=== PATIENT | male | born 1960 | race Asian ===

== ENCOUNTER → 2019-12-07 15:11 | Outpatient (BNVA) | payer OTHER, SELFPAY | PROVIDERS: PCP Internal Medicine; Referring Provider Internal Medicine; Visit Provider Internal Medicine Endocrinology, Diabetes & Metabolism | DX: E11.9 Type 2 diabetes mellitus without complications (principal); Z79.84 Long term (current) use of oral hypoglycemic drugs; E53.8 Deficiency of other specified B group vitamins; E55.9 Vitamin D deficiency, unspecified | CPT/HCPCS: 82947 ==

== ENCOUNTER 2020-01-01 18:13 | Emergency (ER) | payer OTHER, SELFPAY ==
[2020-01-01 18:50] VITALS: BP 137/84; PULSE 78; RESP 16; TEMP 36.7; O2SAT 97; BMI 23.5
[2020-01-01 19:37] LABS: COVID-19 Test Negative (Negative)
--- NOTE | 2020-01-01 20:02 | ED_ITS ---
HPI - General Adult General Chief complaint: General Medical Stated complaint: covid swab Time Seen by Provider: 01/01/20 18:47 Source: patient Mode of arrival: ambulatory Limitations: no limitations History of Present Illness HPI narrative: Here for COVID test offers no complaints needs COVID test for travel. Related Data Home Medications Medication Instructions Recorded Confirmed pantoprazole 40 mg tablet,delayed 40 mg PO DAILY 12/07/19 release Previous Rx's Medication Instructions Recorded flash glucose sensor #2 ea 12/07/19 metformin 1,000 mg tablet 1,000 mg PO BID 30 Days #60 tab 12/07/19 repaglinide 0.5 mg tablet 0.5 mg PO BID 30 Days #60 tab 12/07/19 sitagliptin 100 mg tablet 100 mg PO DAILY 30 Days #30 tab 12/07/19 famciclovir 500 mg tablet 500 mg PO Q8H 7 Days #21 tab 12/31/19 triamcinolone acetonide 0.1 % 1 applic TOPICAL DAILY 10 Days #80 12/31/19 topical cream g Allergies Allergy/AdvReac Type Severity Reaction Status Date / Time No Known Allergies Allergy Verified 01/01/20 18:52 Review of Systems Review of Systems: Constitutional: No Weight loss, No Fever, No Chills, No Night Sweats, No Fatigue, No Malaise ENT/Mouth: No Hearing loss, No Ear Pain, No Nasal Congestion, No Sinus Pain, No Hoarseness, No sore throat, No Rhinorrhea, No Swallowing Difficulty Eyes: No Eye Pain, No Swelling, No Redness, No Foreign Body, No Discharge, No Vision Changes Cardiovascular: No Chest Pain, No SOB, No Dyspnea on Exertion, No Orthopnea, No Edema, No Palpitations Respiratory: No Cough, No Sputum, No Wheezing, No Smoke Exposure, No Dyspnea Musculoskeletal: No joint pain, No Myalgias, No Joint Swelling Skin: No Skin Lesions, No rash Neuro: No Weakness, No Numbness, No Paresthesias, No Loss of Consciousness, No Dizziness, No Headache Psych:No Social Issues Heme/Lymph: No Bruising, No Bleeding,No Lymphadenopathy Endocrine: No Polyuria, No Polydipsia, No Temperature Intolerance Yes all other systems are reviewed and are negative [facility] Past Medical History Medical History (Updated 01/01/20 @ 20:21 by Terry Leonardo NP) Cobalamin deficiency Diabetes type 2, uncontrolled Vitamin D deficiency Surgical History (Updated 12/07/19 @ 15:26 by WILTON Sanabria) History of back surgery Hx of hernia repair Hx of right inguinal hernia repair Family History Family History (Updated 12/07/19 @ 15:28 by WILTON Sanabria) Father No problems noted. Mother Diabetes mellitus Social History Social History (Updated 12/07/19 @ 15:28 by WILTON Sanabria) Smoking Status: Never smoker Advance Directives: No Advance Directives Information Provided: Yes Physical Exam Vital Signs: Vital Signs: Last Vital Signs Temp 98.1 F 01/01/20 18:50 Pulse 78 01/01/20 18:50 Resp 16 01/01/20 18:50 BP 137/84 01/01/20 18:50 Pulse Ox 97 01/01/20 18:50 Body Mass Index 23.5 Const: General: cooperative and healthy appearing; No acute distress or intoxicated appearing Nutritional Appearance: average body habitus Orientation/consciousness: patient oriented x3 HENMT: Head: Yes normal to inspection Ears: hearing grossly normal bilaterally Eyes: General: appearance normal, both eyes and all related structures Visual Donaldson: normal visual donaldson by confrontation Neck: Neck: Yes normal visual inspection, No positive Brudzinski's sign, No positive Kernig's sign and No tender Thyroid: Thyroid normal Chest: Chest palpation & inspection: normal inspection of the chest Skin: General skin exam: no rashes or lesions noted Neuro: General: patient oriented x3 Extrem: General: Yes normal to inspection Course Course Course Narrative: COVID test for travel Medical Decision Making Lab Data Labs: Lab Results 01/01/20 Range/Units 18:47 COVID-19 ([facility]) Negative (Negative) COVID-19 Clin Com See Note Discharge Plan Discharge Clinical Impression: Normal exam Patient Disposition: Home, Self-Care Additional Instructions: Your COVID test was negative today 01/01/2020 at 20:00 Prescriptions: No Action famciclovir 500 mg tablet 500 mg PO Q8H 7 Days Qty: 21 RF: 0 triamcinolone acetonide 0.1 % cream 1 applic topical DAILY 10 Days Qty: 80 RF: 0 pantoprazole 40 mg tablet,delayed release (DR/EC) 40 mg PO DAILY RF: 0 (DME) flash glucose sensor Kit See Rx Instructions ea topical .MEDSUPPLY Qty: 2 RF: 8 metformin 1,000 mg tablet 1,000 mg PO BID 30 Days Qty: 60 RF: 6 sitagliptin 100 mg tablet 100 mg PO DAILY 30 Days Qty: 30 RF: 6 repaglinide 0.5 mg tablet 0.5 mg PO BID 30 Days Qty: 60 RF: 6
== END 2020-01-01 20:42 | disposition home or self-care (01) ==
PROVIDERS: Nurse Practitioner Primary Care; Emergency Provider Internal Medicine; PCP Internal Medicine
DX: Z20.828 Contact with and (suspected) exposure to other viral communicable diseases (principal); Z79.899 Other long term (current) drug therapy
CPT/HCPCS: 87635; 99283; 99284

== ENCOUNTER → 2020-03-07 14:33 | Outpatient (BNVA) | payer OTHER, SELFPAY | PROVIDERS: PCP Internal Medicine; Visit Provider Internal Medicine Endocrinology, Diabetes & Metabolism | DX: E11.9 Type 2 diabetes mellitus without complications (principal); E53.8 Deficiency of other specified B group vitamins; E55.9 Vitamin D deficiency, unspecified | CPT/HCPCS: 82947 ==

== ENCOUNTER 2020-05-11 07:02 | Outpatient (REF) | payer OTHER, SELFPAY ==
[2020-05-11 11:38] LABS: Hematocrit 44.2 % (42-52); Hemoglobin 13.7 g/dl (14.0-18.0); Mean Corpuscular Hemoglobin 25.6 pg (27.0-33.0); Mean Corpuscular Volume 82.5 fL (80-98); Mean Platelet Volume 10.9 fL (9.4-12.4); Platelet Count 180 X10*3/uL (160-400); Red Blood Count 5.36 X10*6/uL (4.60-5.80); Red Cell Distribution Width 12.9 % (11.0-16.0); White Blood Count 3.7 X10*3/uL (4.8-10.8)
[2020-05-11 11:52] LABS: Creatinine Urine 210.64 mg/dL; Microalbum/Creatinine Ratio Ur 2.8 ug/mg cr
[2020-05-11 12:09] LABS: Alanine Aminotransferase 22 U/L (0-40); Albumin Level 4.3 g/dL (3.5-5.0); Alkaline Phosphatase 52 U/L (39-117); Anion Gap 12 (12-20); Aspartate Amino Transferase 16 U/L (5-37); Bilirubin Total 0.3 mg/dL (0.0-1.0); Blood Urea Nitrogen 20 mg/dL (9-16); Calcium 9.1 mg/dL (8.4-10.2); Carbon Dioxide 31 mmol/L (22-29); Chloride 102 mmol/L (96-108); Cholesterol 114 mg/dL; Estimated Glomerular Filt Rate > 60; Glucose Fasting 181 mg/dL (60-99); HDL Cholesterol 59 mg/dL; LDL Cholesterol Calculated 47 mg/dl; Potassium 3.9 mmol/L (3.3-5.1); Sodium 141 mmol/L (135-145); Triglycerides 40 mg/dL
[2020-05-11 12:14] LABS: Vitamin D 25-OH Total 35.7 ng/mL (>30)
[2020-05-11 13:39] LABS: Vitamin B12 310 pg/mL (200-900)
[2020-05-12 07:02] LABS: LDL Cholesterol Direct 44 mg/dL (<100)
== END 2020-05-11 07:03 | disposition home or self-care (01) ==
LOC: HO.HMGCLDS 07:02
PROVIDERS: PCP Internal Medicine; Visit Provider Internal Medicine Endocrinology, Diabetes & Metabolism
DX: E11.65 Type 2 diabetes mellitus with hyperglycemia (principal)
CPT/HCPCS: 36415; 80053; 80061; 82043; 82306; 82607; 83721; 85027

== ENCOUNTER → 2020-05-17 10:35 | Outpatient (BNVA) | payer OTHER, SELFPAY | PROVIDERS: PCP Internal Medicine; Visit Provider Internal Medicine Endocrinology, Diabetes & Metabolism | DX: E11.9 Type 2 diabetes mellitus without complications (principal); E53.8 Deficiency of other specified B group vitamins; E55.9 Vitamin D deficiency, unspecified | CPT/HCPCS: 82947 ==

== ENCOUNTER 2020-06-15 13:59 | Outpatient (REF) | payer OTHER, SELFPAY ==
[2020-06-15 16:49] LABS: Estimated Average Glucose 200 mg/dL; Hemoglobin A1c % 8.6 %
== END 2020-06-15 14:00 | disposition home or self-care (01) ==
LOC: HO.HMGCLDS 13:59
PROVIDERS: PCP Internal Medicine; Visit Provider Internal Medicine Endocrinology, Diabetes & Metabolism
DX: E11.65 Type 2 diabetes mellitus with hyperglycemia (principal)
CPT/HCPCS: 36415; 83036

== ENCOUNTER 2020-09-14 06:32 | Outpatient (REF) | payer OTHER, SELFPAY ==
[2020-09-14 07:49] LABS: Estimated Average Glucose 194 mg/dL; Hemoglobin A1c % 8.4 %
[2020-09-14 07:58] LABS: Alanine Aminotransferase 16 U/L (0-40); Albumin Level 4.3 g/dL (3.5-5.0); Alkaline Phosphatase 52 U/L (39-117); Anion Gap 10 (12-20); Aspartate Amino Transferase 15 U/L (5-37); Bilirubin Total 0.3 mg/dL (0.0-1.0); Blood Urea Nitrogen 18 mg/dL (9-16); Calcium 9.6 mg/dL (8.4-10.2); Carbon Dioxide 29 mmol/L (22-29); Chloride 104 mmol/L (96-108); Cholesterol 124 mg/dL; Estimated Glomerular Filt Rate > 60; Glucose Random 179 mg/dL (60-115); HDL Cholesterol 69 mg/dL; LDL Cholesterol Calculated 50 mg/dl; Potassium 4.4 mmol/L (3.3-5.1); Sodium 139 mmol/L (135-145); Triglycerides 25 mg/dL; Vitamin D 25-OH Total 39.6 ng/mL (>30)
[2020-09-14 08:08] LABS: Prostate Specific Antigen 0.62 ng/mL (<0.05-4.0)
[2020-09-14 09:28] LABS: Creatinine Urine 119.34 mg/dL; Microalbumin Urine < 5.0 mg/L
[2020-09-14 10:07] LABS: Vitamin B12 290 pg/mL (200-900)
== END 2020-09-14 06:33 | disposition home or self-care (01) ==
LOC: HO.LAB 06:32
PROVIDERS: PCP Internal Medicine; Visit Provider Internal Medicine
DX: Z12.5 Encounter for screening for malignant neoplasm of prostate (principal); E11.9 Type 2 diabetes mellitus without complications
CPT/HCPCS: 36415; 80053; 80061; 82043; 82306; 82607; 83036; 84153; 84443

== ENCOUNTER 2021-02-06 08:29 | Outpatient (REF) | payer OTHER, SELFPAY ==
[2021-02-06 08:51] LABS: MANUAL DIFF FLAG NO
[2021-02-06 09:21] LABS: Basophils Percent Auto 0.6 % (0-2); Eosinophils Absolute Auto 0.1 X10*3/uL (0.0-0.4); Eosinophils Percent Auto 0.9 % (0-4); Hematocrit 47.1 % (42.0-52.0); Hemoglobin 14.9 g/dl (14.0-18.0); Imm Gran Abs Auto 0.01 X10*3/uL (0.00-0.03); Imm Gran Pct Auto 0.2 % (0.0-0.4); Lymphocytes Absolute Auto 2.7 X10*3/uL (1.2-4.9); Lymphocytes Percent Auto 50.2 % (20-40); Mean Corpuscular HGB Conc 31.6 g/dl (31.0-36.0); Mean Corpuscular Hemoglobin 25.9 pg (27.0-33.0); Mean Corpuscular Volume 81.8 fL (80.0-98.0); Mean Platelet Volume 10.5 fL (9.4-12.4); Monocytes Absolute Auto 0.3 X10*3/uL (0.1-1.2); Monocytes Percent Auto 6.1 % (2-11); Neutrophils Absolute Auto 2.2 x10*3/uL (2.0-8.3); Platelet Count 193 X10*3/uL (160-400); Red Blood Count 5.76 X10*6/uL (4.60-5.80); Red Cell Distribution Width 12.8 % (11.0-16.0); White Blood Count 5.3 X10*3/uL (4.8-10.8)
[2021-02-06 09:30] LABS: Estimated Average Glucose 186 mg/dL; Hemoglobin A1c % 8.1 %
[2021-02-06 09:55] LABS: Alanine Aminotransferase 22 U/L (0-40); Albumin Level 4.4 g/dL (3.5-5.0); Alkaline Phosphatase 54 U/L (39-117); Anion Gap 11 (12-20); Aspartate Amino Transferase 16 U/L (5-37); Bilirubin Total 0.4 mg/dL (0.0-1.0); Blood Urea Nitrogen 19 mg/dL (9-16); Calcium 9.6 mg/dL (8.4-10.2); Carbon Dioxide 29 mmol/L (22-29); Chloride 102 mmol/L (96-108); Cholesterol 84 mg/dL; Estimated Glomerular Filt Rate > 60; Glucose Random 196 mg/dL (60-115); HDL Cholesterol 46 mg/dL; LDL Cholesterol Calculated 33 mg/dl; Potassium 4.2 mmol/L (3.3-5.1); Sodium 138 mmol/L (135-145); Total Protein 7.1 g/dL (6.5-8.0); Triglycerides 29 mg/dL
[2021-02-06 09:59] LABS: Creatinine Urine 104.27 mg/dL; Microalbum/Creatinine Ratio Ur 7.6 ug/mg cr
== END 2021-02-06 08:30 | disposition home or self-care (01) ==
LOC: HO.LAB 08:29
PROVIDERS: PCP Internal Medicine; Visit Provider Internal Medicine
DX: E11.9 Type 2 diabetes mellitus without complications (principal)
CPT/HCPCS: 36415; 80053; 80061; 82043; 83036; 85025

== ENCOUNTER 2021-04-26 07:10 | Outpatient (REF) | payer OTHER, SELFPAY ==
[2021-04-26 07:38] LABS: MANUAL DIFF FLAG NO
[2021-04-26 07:54] LABS: Basophils Percent Auto 0.5 % (0-2); Eosinophils Percent Auto 0.7 % (0-4); Hematocrit 44.8 % (42.0-52.0); Hemoglobin 13.9 g/dl (14.0-18.0); Imm Gran Abs Auto 0.01 X10*3/uL (0.00-0.03); Imm Gran Pct Auto 0.2 % (0.0-0.4); Lymphocytes Absolute Auto 1.7 X10*3/uL (1.2-4.9); Mean Corpuscular Hemoglobin 25.4 pg (27.0-33.0); Mean Corpuscular Volume 81.9 fL (80.0-98.0); Mean Platelet Volume 10.8 fL (9.4-12.4); Monocytes Absolute Auto 0.3 X10*3/uL (0.1-1.2); Monocytes Percent Auto 7.1 % (2-11); Neutrophils Absolute Auto 2.2 x10*3/uL (2.0-8.3); Neutrophils Percent Auto 51.5 % (45-73); Platelet Count 158 X10*3/uL (160-400); Red Blood Count 5.47 X10*6/uL (4.60-5.80); Red Cell Distribution Width 13.3 % (11.0-16.0); White Blood Count 4.3 X10*3/uL (4.8-10.8)
[2021-04-26 08:18] LABS: Estimated Average Glucose 180 mg/dL; Hemoglobin A1c % 7.9 %
[2021-04-26 08:47] LABS: Vitamin D 25-OH Total 40.2 ng/mL (>30)
[2021-04-26 08:54] LABS: Alanine Aminotransferase 23 U/L (0-40); Albumin Level 4.4 g/dL (3.5-5.0); Alkaline Phosphatase 53 U/L (39-117); Anion Gap 11 (12-20); Aspartate Amino Transferase 17 U/L (5-37); Bilirubin Total 0.4 mg/dL (0.0-1.0); Blood Urea Nitrogen 19 mg/dL (9-16); Calcium 9.9 mg/dL (8.4-10.2); Carbon Dioxide 31 mmol/L (22-29); Chloride 103 mmol/L (96-108); Cholesterol 100 mg/dL; Estimated Glomerular Filt Rate > 60; Glucose Random 169 mg/dL (60-115); HDL Cholesterol 63 mg/dL; LDL Cholesterol Calculated 33 mg/dl; Potassium 4.3 mmol/L (3.3-5.1); Sodium 141 mmol/L (135-145); Total Protein 7.1 g/dL (6.5-8.0); Triglycerides 23 mg/dL
[2021-04-26 09:18] LABS: Creatinine Urine 132.89 mg/dL; Microalbumin Urine < 5.0 mg/L
== END 2021-04-26 07:11 | disposition home or self-care (01) ==
LOC: HO.LAB 07:10
PROVIDERS: PCP Internal Medicine; Visit Provider Internal Medicine
DX: E11.649 Type 2 diabetes mellitus with hypoglycemia without coma (principal); Z82.3 Family history of stroke
CPT/HCPCS: 36415; 80053; 80061; 82043; 82306; 83036; 85025

== ENCOUNTER 2021-07-10 06:01 | Outpatient (REF) | payer OTHER, SELFPAY ==
[2021-07-10 06:20] LABS: MANUAL DIFF FLAG NO
[2021-07-10 07:35] LABS: Basophils Percent Auto 0.5 % (0-2); Eosinophils Percent Auto 0.9 % (0-4); Hematocrit 42.6 % (42.0-52.0); Hemoglobin 13.5 g/dl (14.0-18.0); Imm Gran Abs Auto 0.01 X10*3/uL (0.00-0.03); Imm Gran Pct Auto 0.2 % (0.0-0.4); Lymphocytes Absolute Auto 1.8 X10*3/uL (1.2-4.9); Lymphocytes Percent Auto 40.3 % (20-40); Mean Corpuscular HGB Conc 31.7 g/dl (31.0-36.0); Mean Corpuscular Hemoglobin 25.7 pg (27.0-33.0); Mean Corpuscular Volume 81.1 fL (80.0-98.0); Mean Platelet Volume 11.4 fL (9.4-12.4); Monocytes Absolute Auto 0.3 X10*3/uL (0.1-1.2); Monocytes Percent Auto 7.8 % (2-11); Neutrophils Absolute Auto 2.2 x10*3/uL (2.0-8.3); Neutrophils Percent Auto 50.3 % (45-73); Platelet Count 162 X10*3/uL (160-400); Red Blood Count 5.25 X10*6/uL (4.60-5.80); Red Cell Distribution Width 13.4 % (11.0-16.0); White Blood Count 4.3 X10*3/uL (4.8-10.8)
[2021-07-10 08:05] LABS: Alanine Aminotransferase 18 U/L (0-40); Albumin Level 4.2 g/dL (3.5-5.0); Alkaline Phosphatase 48 U/L (39-117); Anion Gap 11 (12-20); Aspartate Amino Transferase 16 U/L (5-37); Bilirubin Total 0.5 mg/dL (0.0-1.0); Blood Urea Nitrogen 21 mg/dL (9-16); Calcium 9.6 mg/dL (8.4-10.2); Carbon Dioxide 28 mmol/L (22-29); Chloride 104 mmol/L (96-108); Estimated Glomerular Filt Rate > 60; Glucose Random 131 mg/dL (60-115); Sodium 139 mmol/L (135-145); Total Protein 6.8 g/dL (6.5-8.0)
[2021-07-10 08:06] LABS: Estimated Average Glucose 174 mg/dL; Hemoglobin A1c % 7.7 %
[2021-07-10 08:18] LABS: Thyroid Stimulating Hormone 1.41 uIU/mL (0.32-4.0)
[2021-07-10 08:51] LABS: Creatinine Urine 88.82 mg/dL; Microalbumin Urine < 5.0 mg/L
== END 2021-07-10 06:02 | disposition home or self-care (01) ==
LOC: HO.LAB 06:01
PROVIDERS: PCP Internal Medicine; Visit Provider Internal Medicine
DX: E11.9 Type 2 diabetes mellitus without complications (principal)
CPT/HCPCS: 36415; 80053; 82043; 83036; 84443; 85025

== ENCOUNTER 2021-12-05 07:38 | Outpatient (REF) | payer OTHER, SELFPAY ==
[2021-12-05 08:00] LABS: MANUAL DIFF FLAG NO
[2021-12-05 09:09] LABS: Estimated Average Glucose 180 mg/dL; Hemoglobin A1c % 7.9 %
[2021-12-05 09:10] LABS: Basophils Percent Auto 0.5 % (0-2); Eosinophils Absolute Auto 0.1 X10*3/uL (0.0-0.4); Eosinophils Percent Auto 1.3 % (0-4); Hemoglobin 14.3 g/dl (14.0-18.0); Lymphocytes Absolute Auto 1.6 X10*3/uL (1.2-4.9); Lymphocytes Percent Auto 40.1 % (20-40); Mean Corpuscular HGB Conc 31.8 g/dl (31.0-36.0); Mean Corpuscular Hemoglobin 25.7 pg (27.0-33.0); Mean Corpuscular Volume 80.8 fL (80.0-98.0); Mean Platelet Volume 10.5 fL (9.4-12.4); Monocytes Absolute Auto 0.3 X10*3/uL (0.1-1.2); Monocytes Percent Auto 7.7 % (2-11); Neutrophils Percent Auto 50.4 % (45-73); Platelet Count 168 X10*3/uL (160-400); Red Blood Count 5.57 X10*6/uL (4.60-5.80); Red Cell Distribution Width 13.2 % (11.0-16.0); White Blood Count 3.9 X10*3/uL (4.8-10.8)
[2021-12-05 10:42] LABS: Creatinine Urine 124.37 mg/dL; Microalbumin Urine < 5.0 mg/L
[2021-12-05 10:49] LABS: Thyroid Stimulating Hormone 1.61 uIU/mL (0.32-4.0)
== END 2021-12-05 07:39 | disposition home or self-care (01) ==
LOC: HO.LAB 07:38
PROVIDERS: PCP Internal Medicine; Visit Provider Internal Medicine
DX: E11.9 Type 2 diabetes mellitus without complications (principal)
CPT/HCPCS: 36415; 82043; 83036; 84443; 85025

== ENCOUNTER → 2024-03-25 15:21 | Outpatient (BNVA) | payer OTHER, SELFPAY | PROVIDERS: PCP Internal Medicine; Visit Provider Student in an Organized Health Care Education/Training Program | DX: E11.65 Type 2 diabetes mellitus with hyperglycemia (principal); E11.40 Type 2 diabetes mellitus with diabetic neuropathy, unspecified; F40.298 Other specified phobia; E78.2 Mixed hyperlipidemia; Z79.84 Long term (current) use of oral hypoglycemic drugs; Z79.899 Other long term (current) drug therapy | CPT/HCPCS: 82947; 83036 ==

== ENCOUNTER 2024-03-25 15:22 | Outpatient (AMB) | payer OTHER, SELFPAY ==
[2024-03-25 15:24] VITALS: BP 96/50; PULSE 64; O2SAT 96; BMI 21.9
--- NOTE | 2024-03-25 15:24 | MHC.OFFVIS ---
Vital Signs 03/25/24 15:24 Height 5 ft 7 in Weight 139 lb 12.369 oz BMI 21.9 BP 96/50 L Blood Pressure Location Rt brachial Position Sitting Pulse 64 Pulse Source Pulse Oximeter Pulse Oximetry (%) 96 Oxygen Delivery Method Room Air Intake Visit Reasons: Type 2 DM-confirmed Intake Note: Patient present today for Type 2 Diabetes Mellitus Last Diabetic eye exam: 11/2023 Last Podiatry Visit: Doesn't have one Random Glucose: 144 mg/dl HgA1C: 9.0% Winch Runner Required: No Accompanied by: Self / Same As Patient Allergies No Known Allergies Allergy (Verified 03/25/24 15:30) Medication List - Last Reconciled 03/25/24 by Elena Leonardo MD aspirin 81 mg PO DAILY blood-glucose sensor (FreeStyle Yulia 3 Plus Sensor device) As directed every 15 days E11.65 Type 2 DM with hyperglycemia 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 Type 2 diabetes mellitus diagnosed in 1999. Was seen at our clinic last in 2020, then following wiht PCP A1c 03/25/2024 POC: 9% Over the past year his diabetes mellitus control has worsened and A1c was 8.5% in summer of 2023. Prior therapy: Januvia stopped mid Feb 2024 Sitagliptin Used to be on insulin lantus some 3 years ago ,was stopped with improved control in 2020ish, used to be on it 1.5 hours Current regimen: Metformin 1000 mg BID Jardiance 12.5 mg daily reduce from 25 mg daily mid Feb 2024 Ozempic 0.25 mg weekly started mid Feb 2024 Denies any symptoms of hyperglycemia including polyphagia, polyuria, polydipsia. Denies any hypoglycemic symptoms. vitamin B 12 5000 mcg once a week CGM data downloaded March 12 to 03/25/2024. Time CGM active 40% G mi in/A Glucose variability 23.4% I average glucose 169 mg/dL Within target range 73% 0% kilos Very high 3% High range 24% Vaccines: flu shot [id number] done Complications Eye exam: Last eye exam was November 2023, no retinopathy Neuropathy: reports numbness, tingling in feet Kidney disease: Gfr 90 Pérez Macrovascular complications: No history of macrovascular complications. Statin:rosuvastatin 5 mg daily ONIEL/ARB: none Exercise: walks not much recently Diet control: want s to see statistical programmer He has never had any hospitalizations for hyperglycemia/hypoglycemia. Physical exam General: sitting comfortably in no acute distress HEENT: normocephalic/atraumatic, Neck: supple Cardiac: normal heart sounds Pulm: normal breath sounds B/L, no added breath sounds Abd: not distended, no tenderness Extremities: no edema, no signs of myxedema Neuro: AAO x3, Speech: normal, no facial droop, moving all 4 extremities Skin: Some hyperpigmentation noted on his calves, ecchymosis also noted Foot exam: intact sensation to monofilament, intact pulses, intact vibration Laboratory Tests 04/26/21 12/05/21 03/25/24 07:36 07:58 15:34 Glucose (Clinic) 144 H Hemoglobin A1c % 7.9 Triglycerides 23 Cholesterol 100 LDL Cholesterol, Calc 33 HDL Cholesterol 63 D TSH 1.61 Urine Creatinine 124.37 Urine Microalbumin < 5.0 [facility] Medical History (Updated 03/25/24 @ 16:30 by Elena Leonardo MD) HLD (hyperlipidemia) Needle phobia Vitamin D deficiency Cobalamin deficiency Diabetes type 2, uncontrolled Surgical History Hx of hernia repair Hx of right inguinal hernia repair History of back surgery Family History Father No problems noted. Mother Diabetes mellitus Social History Alcohol intake: never Physical Exam Vital Signs: Last Vital Signs Pulse 64 03/25/24 15:24 BP 96/50 L 03/25/24 15:24 Pulse Ox 96 03/25/24 15:24 Oxygen Delivery Method Room Air 03/25/24 15:24 BMI result Body Mass Index 21.9 Office Procedures Glucose Monitoring Details Details: see [facility] [address] - Glucose monitoring, continuous-physician I&R Procedure code (CPT) selection complete Results AMB Hemoglobin A1c AMB Hemoglobin A1c 9.0 % Last Edit by WILTON Stover on 03/25/24 15:44 Results Reviewed Results Reviewed: Laboratory Last Values Glucose (Clinic) 144 mg/dL (60-115) H 03/25/24 15:34 Assessment & Plan Assessment & Plan (1) Diabetes type 2, uncontrolled: Code(s): E11.65 - Type 2 diabetes mellitus with hyperglycemia Category: Medical Qualifiers: Glycemic state: with hyperglycemia Qualified Code(s): E11.65 - Type 2 diabetes mellitus with hyperglycemia Plan: 63-year-old male with history of type 2 diabetes mellitus with complications of neuropathy, who was diagnosed in 1999, with no long-term insulin use, whose A1c is at 9%. He has freestyle Yulia 2, , and he does not scan very regularly, he has needle phobia so he does not check his blood sugars otherwise, we will prescribe freestyle Yulia 3+. In February his primary care physician made a few changes to his regimen, he was started on Ozempic and Januvia was stopped. He has been tolerating Ozempic 0.25 mg weekly fine. His BMI is 21 kg per m2 so he is not interested in losing more weight, however he is still having postprandial highest so I would like to increase his Ozempic to 0.5 mg weekly. His Jardiance is at 12.5 mg daily, this was reduced in February because he had a syncopal/presyncopal episode and there is a concern this might be due to hypotension/low volume. His blood pressure at today's visit was also on the lower side I have asked him to monitor his blood pressures at home and if his blood pressures remain lower if he is experiencing lightheadedness or dizziness, unfortunately we will have to take him off Jardiance. However for now we will keep him on that dosage. We also spent a large part of the visit today, focusing on diabetes complications and complications of hyperglycemia. Discussed importance of controlling blood sugars to avoid microvascular and macrovascular complications. Plan: -increase Ozempic to 0.5 mg weekly -continue Jardiance 12.5 mg daily -continue 1000 mg metformin b.i.d. -continue vitamin B12 5000 mcg once a week -foot exam done today unremarkable -up-to-date with Ophthalmology, no history of retinopathy -I did not see a urine microalbumin in the chart, he says he had that done with his PCP recently, he will bring me results next visit -follow up in 12 weeks -referral to certified diabetes educator placed for new CGM education -referral to statistical programmer placed -continue monitoring blood pressures at home (2) Needle phobia: Code(s): F40.298 - Other specified phobia Category: Medical Plan: Patient has needle phobia, has a uncontrolled hyperglycemia, has freestyle Yulia 2, we will prescribe freestyle Yulia 3+ (3) HLD (hyperlipidemia): Code(s): E78.5 - Hyperlipidemia, unspecified Category: Medical Qualifiers: Hyperlipidemia type: mixed hyperlipidemia Qualified Code(s): E78.2 - Mixed hyperlipidemia Plan: No recent lipid panel in the chart, patient says he had this done recently. Continue rosuvastatin 5 mg daily Plan I spent 60 minutes in reviewing the record, seeing the patient and documenting in the medical record. Orders: Orders AMB Hemoglobin A1c Today E11.65 - Type 2 diabetes mellitus with hyperglycemia, Z13.9 - Encounter for screening, unspecified AMB Glucose Monitoring Today E11.65 - Type 2 diabetes mellitus with hyperglycemia Referrals Head Machinist Nutrition Referral E11.65 - Type 2 diabetes mellitus with hyperglycemia Diabetes Education Referral E11.65 - Type 2 diabetes mellitus with hyperglycemia Medications: New blood-glucose sensor (FreeStyle Yulia 3 Plus Sensor device) As directed every 15 days E11.65 Type 2 DM with hyperglycemia F40.231 Needle phobia 1 ea 0RF semaglutide (Ozempic) 0.5 mg (0.736 mL) subcut QWEEK 3 mL 6RF Patient Instructions: Increase Ozempic to 0.5 mg weekly Continue metformin 1000 twice a day Continue jardiance 12.5 mg daily Coding Level of Care Code New Pt Level 5 (45213) Diagnoses Uncontrolled type 2 diabetes mellitus with hyperglycemia E11.65 Glycemic state: with hyperglycemia Needle phobia F40.298 Mixed hyperlipidemia E78.2 Hyperlipidemia type: mixed hyperlipidemia CPT Codes Details - CPT: 98598 - Glucose monitoring, continuous-physician I&R ([id number]) Time Spent (min) 60
--- OUTSIDE RECORDS SUMMARY | 2024-03-25 15:26 | XMS_ITS ---
Author Organization [facility] Address [address] [place] [address] Care Team Providers Care Technical Publications Writer Name Role Phone ANTONY MORTENSEN Primary Care Provider Antony Mortensen Unavailable [phone] Medications Medication SIG (Take, Route, Fr equency, Duration) Notes Start Date End Date Status Azithromycin 500 MG 1 Orally Once a day for 14 days Active Tretinoin 0.025 % 1 application in the evening to face Externally Once a day for 30 days Active Encounters Encounter Location Date Provider Diagnosis [facility] [address] [id number] 12/24/2022 ANTONY MORTENSEN Plan Of Treatment Medication Medication Name Sig Start Date Stop Date Notes Azithromycin 500 MG 1 Orally Once a day for 14 days Tretinoin 0.025 % 1 application in the evening to face Externally Once a day for 30 days Progress Notes * Lupe RUBY SDOB: [birth year] (62 yo M)Acc No.[id number]:12/24/2022 Patient:?Monet Ruby :1960???Age:62 Y???Sex:Male Address:[address], [place], [address] * Refills? Refill Azithromycin Tablet, 500 MG, Orally, 14, 1, Once a day, 14 days, Refills=0 Start Tretinoin Cream, 0.025 %, Externally, 45 Gram, 1 application in the evening to face, Once a day, 30 days, Refills=1 * true * Date:? Generated for Crystal toledo/Lorenzo/eTparkersmitting on:?03/25/2024 03:25 PM EST
--- OUTSIDE RECORDS SUMMARY | 2024-03-25 15:26 | XMS_ITS | Clinical Summary ---
Author Organization [facility] Address [address] [place] [address] Care Team Providers Care Paper Rewinder Name Role Phone Unknown, Primary Care Provider Unavailabl e Social History Tobacco Use Types Packs/Day Years Used Date Smoking Tobacco: Never Assessed Sex and Gender Information Value Date Recorded Sex Assigned at Not on file Gender Identity Not on file Sexual Orientation Not on file Job Start Date Occupation Industry Not on file Not on file Not on file Plan of Treatment Health Maintenance Due Date Last Done Comments Hepatitis C Screening 1960 COVID-19 Vaccine (#1) 04/24/1961 Depression Screening 1972 Preventative Health Evaluation 1978 DTap / Tdap / Td (1 - Tdap) 10/26/1979 Colon Cancer Screening (Colonoscopy) 2005 Shingrix-Zoster Vaccine (1 of 2) 2010 Influenza Vaccine (#1) 2023 RSV Adult > 60+ Yrs or Pregn ant (1 - 1-dose 75+ series) 10/26/2035 Hepatitis B Vaccines Aged Out No long er eligible based on patient's age to complete this topic Pneumococcal Vaccine Aged Out No long er eligible based on patient's age to complete this topic RSV Ped < 20 months Aged Out No longe r eligible based on patient's age to complete this topic Care Teams Paper Rewinder Relationship Specialty Start Date End Date Unknown, PCP - General 10/26/20
--- OUTSIDE RECORDS SUMMARY | 2024-03-25 15:26 | XMS_ITS | Patient Health Record ---
Author Organization [facility] Address [address] [place] [address] Care Team Providers Care Reservations Sales Agent Name Role Phone ANTONY MORTENSEN Primary Care Provider Antony Mortensen Unavailable [phone] Allergies No Known Allergies Reason For Referral No Information Medications Medication SIG (Take, Route, Frequency, Duration) Notes Start Date End Date Status Azithromycin 500 MG 1 Orally Once a day for 14 days Active Tretinoin 0.025 % 1 application in the evening to face Externally Once a day for 30 days Active FreeStyle Yulia 14 Day Sensor - as directed DX: DM TYPE 2 E11.9 TEST SUGARS DAILY for 14 days Active metFORMIN HCl 1000 MG TAKE 1 TABLET BY M OUTH TWICE DAILY WITH MEALS for 90 Active Benzonatate 100 MG 1 capsule as needed Orally Three times a day for 14 days Not-Taking metFORMIN HCl 1000 MG TAKE 1 TABLET BY M OUTH TWICE DAILY WITH MEALS for 90 Active Januvia 100 MG TAKE 1 TABLET BY KAMRAN TH DAILY for 90 Active Omeprazole 20 MG TAKE 1 CAPSULE BY MOUTH EVERY DAY for 90 Active Betamethasone Valerate 0.1 % 1 application to affected area Externally Once a day for 30 PRN 11/02/2020 Not-Taking Clopidogrel Bisulfate 75 MG 1 tablet Orally Once a day for 90 days 08/12/2022 Active Diclofenac Sodium 50 MG 1 tablet as need ed Orally Twice a day 05/16/2021 Not-Taking Cyclobenzaprine HCl 5 MG TAKE 1 TABLET B Y MOUTH THREE TIMES DAILY for 30 Active Metrogel 1 % 1 application to affected area Externally Once a day for 30 PRN 11/02/2020 Not-Taking Tsering Aspirin EC Low Dose 81 MG 1 tablet Orally Once a day for 30 day(s) Active Clindamycin Phosphate 1 % 1 application Externally Twice a day prn 05/18/2021 Active FreeStyle Yulia [place] - READER DX: DM T YPE 2 E11.9 TEST SUGARS 11/02/2020 Active FreeStyle Lite Test - as directed In Vit ro To Test BS QD. DX: E11.9 for 90 days 03/07/2021 Active Lipoic Acid 150 MG as directed Orally Active Jardiance 10 MG TAKE 1 TABLET BY KAMRAN TH EVERY DAY for 90 Active Bacitracin Zinc-Aloe 500 UNIT/GM 1 application Externally Once a day for 30 days Active Rosuvastatin Calcium 5 MG TAKE 1 TABLET BY MOUTH EVERY DAY for 90 Active Social History Tobacco Use: Social History Observation Description Date Details (start date - stop date) Never Smoker NA - NA Tobacco Use/Smoking Question Answer Notes Are you a nonsmoker Additional Findings: Tobacco Non-User Current no n-smoker Alcohol Screen (Audit-C) Question Answer Notes Did you have a drink containing alcohol in the p ast year? No Points 0 Interpretation Negative Tobacco use other than smoking: Question Answer Notes Are you an other tobacco user? No Section Notes: Marital HX: Got in 1986 . Had a son and dtr born in [place] He moved to [facility] in 1989 and brought his family here in [address]. [address] [facility] in Jan 1999 and then moved in [address] [place] [address] in [place] , neighbor of Dr Davy Rosario . Has 2 sons and 2 daughters #Ale Ruby 32 yr Got bachelors in psychology from [employer]. 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 . He got at age 22 yr to 18 yr rwandan Jenifer Leonardo They have2 sons and a daughter and live [place] mile away #Sanju Ruby 20 yrs High School at [employer] 3rd year doing major in [employer] science . Lives at home #Lupe Martin 18 yr [facility]es [facility] [employer] Plans to go to [employer] [facility] [facility] in Fall Personal Doesnt smoke or drink coffee or tea ACTIVITIES. 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 Had a son and dtr born in [place] He moved to [facility] in 1989 and brought his family here in [address]. [address] [facility] [place] Jan 1999 and then moved in [address] [place] [address] in [place] , neighbor of Dr Davy Rosario . Has 2 sons and 2 daughters #Ale Pughudhry 32 yr Got bachelors in psychology from [employer]. 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 He got at age 22 yr to 18 yr rwandan Jenifer Leonardo They have2 sons and a daughter and live [place] mile away #Sanju Ruby 20 yrs High School at [employer] 3rd year doing major in [employer] science . Lives at home #Lupe Martin 18 yr Goes to [employer] Plans to go to [employer] [facility] in Fall Personal Doesnt smoke or drink coffee or tea ACTIVITIES. 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 Had a son and dtr born in [place] He moved to [facility] in 1989 and brought his family here in [address]. [address] [facility] [place] Jan 1999 and then moved in [address] [place] [address] in [place] , neighbor of Dr Davy Rosario . Has 2 sons and 2 daughters #Alerosy Ruby 32 yr Got bachelors in psychology from [employer]. 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 He got at age 22 yr to 18 yr rwandan Jenifer Leonardo They have2 sons and a daughter and live half mile away #Asma Tung 20 yrs [facility] [employer] 3rd year doing major in [employer] science . Lives at home #Lupe Martin 18 yr Goes to [employer] Plans to go to [employer] [facility] in Fall Personal Doesnt smoke or drink coffee or tea ACTIVITIES. 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 Had a son and dtr born in [place] He moved to [facility] in 1989 and brought his family here in [address]. [address] [facility] Jan 1999 and then moved in [address] [place] [address] in [place] , neighbor of Dr Davy Rosario . Has 2 sons and 2 daughters #Ale Tung 32 yr Got bachelors in psychology from [employer]. 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 He got at age 22 yr to 18 yr rwandan Jenifer Leonardo They have2 sons and a daughter and live half mile away #Asma Tung 20 yrs High School at [employer] 3rd year doing major in [employer] science . Lives at home #Lupe Martin 18 yr Goes to [employer] Plans to go to [employer] [facility] in Fall Personal Doesnt smoke or drink coffee or tea ACTIVITIES. 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 Had a son and dtr born in [place] He moved to [facility] in 1989 and brought his family here in [address]. [address] [facility] [place] Jan 1999 and then moved in [address] [place] [address] in [place] , neighbor of Dr Davy Rosario . Has 2 sons and 2 daughters #Ale Pughudhry 32 yr Got bachelors in psychology from [employer]. 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 He got at age 22 yr to 18 yr rwandan Jenifer Leonardo They have2 sons and a daughter and live half mile away #Sanju Ruby 20 yrs High School at [employer] 3rd year doing major in [employer] science . Lives at home #Lupe Martin 18 yr Goes to [employer] Plans to go to [employer] [facility] in Fall Personal Doesnt smoke or drink coffee or tea ACTIVITIES. 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 Had a son and dtr born in [place] He moved to [facility] in 1989 and brought his family here in [address]. [address] [facility] [place] Jan 1999 and then moved in [address] [place] [address] in [place] , neighbor of Dr Davy Rosario . Has 2 sons and 2 daughters #Ale Tung 32 yr Got bachelors in psychology from [employer]. 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 He got at age 22 yr to 18 yr rwandan Jenifer Leonardo They have2 sons and a daughter and live half mile away #Asmbrittanie PughTung 20 yrs [facility] [employer] 3rd year doing major in [employer] science . Lives at home #Lupe Martin 18 yr Goes to [employer] Plans to go to [employer] [facility] in Fall Personal Doesnt smoke or drink coffee or tea ACTIVITIES. 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 Had a son and dtr born in [place] He moved to [facility] in 1989 and brought his family here in [address]. [address] [facility] Jan 1999 and then moved in [address] [place] [address] in [place] , neighbor of Dr Davy Rosario . Has 2 sons and 2 daughters #Ale Ruby 32 yr Got bachelors in psychology from [employer]. 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 He got at age 22 yr to 18 yr rwandan Jenifer Leonardo They have2 sons and a daughter and live half mile away #Asma Tung 20 yrs [facility] [employer] [facility] [employer] [employer] 3rd year doing major in [employer] science . Lives at home #Lupe Martin 18 yr Goes to [employer] Plans to go to [employer] [facility] in Fall Personal Doesnt smoke or drink coffee or tea ACTIVITIES. 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 Had a son and dtr born in [place] He moved to [facility] in 1989 and brought his family here in [address]. [address] [facility] [place] Jan 1999 and then moved in [address] [place] [address] in [place] , neighbor of Dr Davy Rosario . Has 2 sons and 2 daughters #Ale Pughudhry 32 yr Got bachelors in psychology from [employer]. 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 He got at age 22 yr to 18 yr rwandan Jenifer Leonardo They have2 sons and a daughter and live half mile away #Sanju Pughudhry 20 yrs High School at [employer] 3rd year doing major in [employer] science . Lives at home #Lupe Martin 18 yr Goes to [employer] Plans to go to [employer] [facility] in Fall Personal Doesnt smoke or drink coffee or tea ACTIVITIES. 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 Had a son and dtr born in [place] He moved to [facility] in 1989 and brought his family here in [address]. [address] [facility] [place] Jan 1999 and then moved in [address] [place] [address] in [place] , neighbor of Dr Davy Rosario . Has 2 sons and 2 daughters #Alerosy Ruby 32 yr Got bachelors in psychology from [employer]. 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 He got at age 22 yr to 18 yr rwandan Jeniferinder Leonardo They have2 sons and a daughter and live half mile away #Kingbrittanie Tung 20 yrs High School at [employer] 3rd year doing major in [employer] science . Lives at home #Lupe Martin 18 yr Goes to [employer] Plans to go to [employer] [facility] in Fall Personal Doesnt smoke or drink coffee or tea ACTIVITIES. 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 Had a son and dtr born in [place] He moved to [facility] in 1989 and brought his family here in [address]. [address] [facility] Jan 1999 and then moved in [address] [place] [address] in [place] , neighbor of Dr Davy Rosario . Has 2 sons and 2 daughters #Ale Ruby 34 yr Got bachelors in psychology from [employer]. 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 He got at age 22 yr to 18 yr rwandan Jenifer Leonardo They have2 sons and a daughter and live half mile away. Omer 7 yr Twin [place] 7 yr, Paul Mercedes 5 1/2yr. Going to [employer] in [facility]. [address] #Sanju Ruby 21 yrs High School at [employer] 3rd year doing major in Computer science . 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 Personal Doesnt smoke or drink coffee or tea ACTIVITIES. 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 Went for Hajj in [address] Jiménez . Then again with in 2005. Then again Umra in 2000 and again woth me and Brittni Power in 2021. 08/11/21 Marital HX: Got in 1986 . Had a son and dtr born in [place] He moved to [facility] in 1989 and brought his family here in [address]. [address] [facility] Jan 1999 and then moved in [address] [place] [address] in [place] , neighbor of Dr Davy Rosario . Has 2 sons and 2 daughters #Ale Ruby 34 yr Got bachelors in psychology from [employer]. 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 He got at age 22 yr to 18 yr rwandan Jenifer Leonardo They have2 sons and a daughter and live half mile away. Omer 7 yr Twin [employer] 7 yr, Moisedeion Mercedes 5 1/2yr. Going to [employer] in [facility]. [address] #Sanju Ruby 21 yrs High School at [employer] 3rd year doing major in Computer science . 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 Personal Doesnt smoke or drink coffee or tea ACTIVITIES. 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 Went for Hajj in [address] Jiménez . Then again with in 2005. Then again Umra in 2000 and again woth me and Talal george Power in 2021. 08/11/21 Marital HX: Got in 1986 . Had a son and dtr born in [place] He moved to [facility] in 1989 and brought his family here in [address]. [address] [facility] Jan 1999 and then moved in [address] [place] [address] in [place] , neighbor of Dr Davy Rosario . Has 2 sons and 2 daughters #Ale Ruby 34 yr Got bachelors in psychology from [employer]. 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 He got at age 22 yr to 18 yr rwandan Jenifer Leonardo They have2 sons and a daughter and live half mile away. Omer 7 yr Twin [employer] 7 yr, Paul Mercedes 5 1/2yr. Going to [employer] in [facility]. [address] Flori Ruby 21 yrs [facility] School [facility] [employer] [facility] [employer] 3rd year doing major in Computer science . 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 Personal Doesnt smoke or drink coffee or tea ACTIVITIES. 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 Went for Hajj in [address] Jiménez . Then again with in 2005. Then again Umra in 2000 and again woth and Brittni Power in 2021. 08/11/21 Marital HX: Got in 1986 . Had a son and dtr born in [place] He moved to [facility] in 1989 and brought his family here in [address]. [address] [facility] [place] Jan [place] and then moved in [address] [place] [address] in [place] , neighbor of Dr Davy Rosario . Has 2 sons and 2 daughters #Ale Ruby 34 yr Got bachelors in psychology from [employer]. 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 . He got at age 22 yr to 18 yr rwandan Jenifer Leonardo They have2 sons and a daughter and live half mile away. Omer 7 yr Twin [employer] 7 yr, Paul Diggsor 5 /2yr. Going to [employer] in [facility]. [address] #Sanju Ruby 21 yrs High School at [employer] 3rd year doing major in Computer science . 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 Personal Doesnt smoke or drink coffee or tea ACTIVITIES. 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 Went for Hajj in [address] Jiménez . Then again with in 2005. Then again Umra in 2000 and again woth and Brittni Power in 2021. Problems Problem Type SNOMED Code ICD Code Onset Dates Problem Status W/U Status Risk Notes Problem Acne vulgaris (92789693) Acne vulgaris (L70.0) Active confirmed Given trenitoin cream by Dr Matty TEJADA Problem Rosacea (475637591) Other rosacea (L71.8) Active confirmed Saw Dr Muhammad Given Metronidazole Cream He is retiring Will send to Dr Coleman Problem Disorder of skin AND/OR subcutaneous tissue (24183092) Disorder of the skin and subcutaneous tissue, unspecified (L98.9) Active confirmed Problem Rosacea (179344739) Rosacea (L71.9) Active confirmed Will give metrogel and doxy Problem Gastroesophageal reflux disease (108988705) GERD (gastroesophag eal reflux disease) (K21.9) Active confirmed 01/21/22 Will refer to GI to exclude Barretts Problem Diabetes mellitus without complication (626637885) Diabetes (E11.9) Active confirmed 01/29/21 A1c was 8.4 in September Will recheck 02/20/21 A1C 8.1 Had stopped Jardiance as noticed BS was in 40-60 range but 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 Restarted Jardiance 5 weeks ago. Will chdecide upon treatment change Problem Hypoglycemia (789894384) Hypoglycemia (E16.2) Active confirmed 01/29/21 Will stop jardiance He will monitor Problem Chronic cough (75304085) Chronic cough (R05) Active confirmed Noticed this started after his Covid infection It has resolved but gets occasional bouts of dry cough . Also noticed when he is reading the Quran in morning with Sheikh Julio at the [facility] in the morning he feels he gets out of breath It is a new symptoms I told him he should get PFTs and should see Dr Cartagena and Ill give him montelukast to see if there is an allergic component Problem 579224231 Family history of coronary artery disease (Z82.49) Active confirmed Problem Right bundle branch block (99776347) Right bundle branch block (RBBB) (I45.10) Active confirmed Problem Family history of CVA (439854910) Family history of CVA (Z82.3) Active confirmed Problem Requires vaccination (990301721) COVID-19 vaccine administered (Z23) Active confirmed Got booster jab 12/07/20 Problem [id number] Strain of right hamstring muscle, initial encounter (S76.311A) Active confirmed will refer to PT for eval Problem 4060553444881770 Tendinitis of left shoulder (M77.8) Active confirmed 06/19/22 Happened 04/29/22 Got better after icing Problem Chronic folliculitis (008255083) Chronic folliculitis (L73.9) Active confirmed Problem 328655792 Penetrating wound (T14.8XXA) Active confirmed 09/16/22 Not infected Will order TDap Last one 11 years ago Plan Of Treatment Pending Test Test Name Order Date Hemoglobin A1c 09/16/2022 Hemoglobin A1c 06/19/2022 Lipid Panel 06/19/2022 Chem-Comprehensive 06/19/2022 Chem-Comprehensive 09/16/2022 Insurance Providers Payer Name Payer Address Payer Phone Subscriber Number Group Number Insured Name Patient Relationship to Insured Coverage Start Date Coverage End Date [address] [place] [address] [id number] Lupe Ruby Self - patient is the insured Medical (General) History Medical History History ICD Code Chicken pox and measles in childhood Type 2 Diabetes Mellitus. Dx when cousin Mario checked his BS [address] Cartagena and put on Metformin Glipizide was also started but stopped as he had hypoglycemia Started seeing Willard L[facility](from [facility] [employer] in [place] 3 years ago. A1c 8.5 Started on Lantis 18 units . Stopped 18 months ago Put on Januvia , metformin and Repaglanide(he stopped Mar 2020 himself) He has CGM Suzie and last A1C was 7.8 5 months ago Left knee pain since 2017 [place] [address] Dr Espinoza, Orthopedic surgeon in [place] Had XRay and Dr Manzano MRI Told will need arthroscopic surgery He felt better after 2 months . ! Hx of abdominal pain Went to ED twice 2016 and [address] abdomen Discharged on omeprazole . Not taking it, Weight loss Used to weigh 155 lbs and no w 143 lbs States he eats better Hospitalization in [facility] with chills and diarrhea severe 2018 Given IV fluids Discharged after 2 hours Family History of Diabetes M other. 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 Told not to worry. No testing done 3 sisters and a brother. Family hx of CAD. Mother , one brother h as stents Covid Vaccine Pfizer from [facility] 05/16/20 and 06/08/20 No side effects Shingles Vaccine Mar 2020 [facility] Pneumovax Mar 2020 From [facility] . Done but told ne ed to repeat as not done properly Saw GI Dr Hank Marie at [facility] Covid Positive 12/13/20 Expos ed to grand daughter 4 days earlier who was Covid Positive Arranged for monoclonal antibody infusion 12/15/20 at [facility] Rosacea sees Dr Muhammad Last 01/30/21 Give n Metronidazole cream Acne Vulgaris Dr Muhammad prescribes trenit oin cream Surgical History Surgery Date(Month/Year) Lumbar Surgery 1995 Dr Cuadra Had L4-5 discectomy for left sided sciatica . Has been asymptomatic since then 1995 Right Inguinal Hernia Repair 2019 [facility] Dr Himanshu Sanchez 2019 [place] teeth extraction left lower jaw D randall Soriano 2015 Hospitalization History Reason Date(Month/Year) STOMACH PAINS IN [facility] 2018
--- OUTSIDE RECORDS SUMMARY | 2024-03-25 15:26 | XMS_ITS ---
Author Organization [facility] Address [address] [place] [address] [address] [place] [address] Care Team Providers Care Frame Catcher Name Role Phone ANTONY MORTENSEN Primary Care Provider Antony Mortensen Unavailable [phone] Allergies No Known Allergies REASON FOR VISIT 4m f/u, LABS DONE SEP 2022, EKG DUE AT ANNUAL Medications Medication SIG (Take, Route, Frequency, Duration) Notes Start Date End Date Status metFORMIN HCl 1000 MG TAKE 1 TABLET BY MOUTH TWICE DAILY WITH MEALS for 90 Active Omeprazole 20 MG TAKE 1 CAPSULE BY MOUTH EVERY DAY for 90 Active Clopidogrel Bisulfate 75 MG 1 tablet Orally Once a day for 90 days 08/12/2022 Active Cyclobenzaprine HCl 5 MG TAKE 1 TABLET B Y MOUTH THREE TIMES DAILY for 30 Active FreeStyle Yulia 14 Day Sensor - as directed DX: DM TYPE 2 E11.9 TEST SUGARS DAILY for 14 days Active Tsering Aspirin EC Low Dose 81 MG 1 tablet Orally Once a day for 30 day(s) Active FreeStyle Yulia Dalton - READER DX: DM T YPE 2 E11.9 TEST SUGARS 11/02/2020 Active Lipoic Acid 150 MG as directed Orally Active Januvia 100 MG TAKE 1 TABLET BY MOUTH DAILY for 90 Active Bacitracin Zinc-Aloe 500 UNIT/GM 1 application Externally Once a day for 30 days Active Benzonatate 100 MG 1 capsule as needed Orally Three times a day for 14 days Not-Taking Betamethasone Valerate 0.1 % 1 application to affected area Externally Once a day for 30 PRN 11/02/2020 Not-Taking Diclofenac Sodium 50 MG 1 tablet as need ed Orally Twice a day 05/16/2021 Not-Taking Metrogel 1 % 1 application to affected area Externally Once a day for 30 PRN 11/02/2020 Not-Taking Azithromycin 500 MG 1 Orally Once a day for 14 days Not-Taking Clindamycin Phosphate 1 % 1 application Externally Twice a day prn 05/18/2021 Active FreeStyle Lite Test - as directed In Vit ro To Test BS QD. DX: E11.9 for 90 days 03/07/2021 Active Cephalexin 500 MG 1 tablet Orally Twic e a day for 30 days 12/15/2022 Active Jardiance 10 MG TAKE 1 TABLET BY MOUTH EVERY DAY for 90 Active Rosuvastatin Calcium 5 MG TAKE 1 TABLET BY MOUTH EVERY DAY for 90 Active Bacitracin Zinc 500 UNIT/GM 1 application Externally Once a day for 30 days 12/15/2022 Active Social History Tobacco Use: Social History [...] an other tobacco user? No Section Notes: 08/11/21 Marital HX: Got in 1986 . Had a son and dtr born in [place] He moved to [facility] in 1989 and brought his family here in [address]. [address] [facility] in Jan 1999 and then moved in [address] [place] [address] in [place] , neighbor of Dr Davy Rosario . Has 2 sons and 2 daughters #Ale Ruby 34 yr Got bachelors in psychology from [employer]. 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 He got at age 22 yr to 18 yr eritrean Jenifer Leonardo They have2 sons and a daughter and live half mile away. Omer 7 yr Twin [place]if[place] 7 yr, Paul Mercedes 5 1/2yr. Going to [employer] in [place] #Sanju Ruby 21 yrs High School at [employer] 3rd year doing major in Minube science . 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 Personal Doesnt smoke or drink coffee or tea ACTIVITIES. 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 Went for Hajj in [address] Jiménez . Then again with in 2005. Then again Umra in 2000 and again woth me and Brittni Power in 2021. Vital Signs Temperature 98.7 degrees Fahrenheit 11/06/19 23 Blood pressure systolic 128 mm Hg 11/06/19 23 Blood pressure diastolic 66 mm Hg 023 Heart Rate 74 /min 11/05/2022 Height 67 in 11/05/2022 Weight 143 lbs 11/05/2022 BMI 22.39 kg/m2 11/05/2022 Oximetry 97 % 11/05/2022 Encounters Encounter Location Date Provider Diagnosis [address] [place] [address] 11/05/2022 ANTONY MORTENSEN Diabetes E11.9 and GERD (gastroesophageal reflux disease) K21.9 Assessments Encounter Date Diagnosis (ICD Code) Assessment Notes Treatment Notes Treatment Clinical Notes Section Notes 11/05/2022 Diabetes (ICD-10 - E11.9) 01/29/21 A1c was 8.4 in September Will recheck 02/20/21 A1C 8.1 Had stopped Jardiance as noticed BS was in 40-60 range but 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 Restarted Jardiance 5 weeks ago. Will chdecide upon treatment change 11/05/2022 GERD (gastroesophag eal reflux disease) (ICD-10 - K21.9) 01/21/22 Will refer to GI to exclude Barretts Plan Of Treatment Next Appt Details Follow Up: 4 Months, Reason: Progress Notes * Candi RUBYOB: [birth year] (62 yo M)Acc No.[id number]:11/05/2022 Progress Notes Patient:?Monet RUBY Provider:?Antony Mortensen MD :1960???Age:62 Y???Sex:Male Adalid e:11/05/2022 Address:[address] [place] [address], [facility] Michael [id number] Subjective: * Chief Complaints: * ???4m f/uLABS DONE SEP 2022E KG DUE AT ANNUAL * HPI: ???Constitutional:? 11/05/22 Looking well. His cut has healed . Filing for taxes with late extension . Had cologuard Jan 2021 which was negative . Did not go for EGD. No other concerns. 09/16/22 Urgent visit Was using electrical saw and cut the skin of his left palm ar the base of the thumb. Happend last . He cleaned it up. It did bleed profusely . He used bacitricin cream and bandage . Comes today for wound check as he is a diabetic. I examined the wound Z shaped skin laceration with clean margin about 2 cm.in length. 06/19/22 Got message from ASHLEY Hyde on 05/27/22 for his GI appointment . Got call 4 months late. Meds reviewed and reconciled Compliant. Needs refill of Doxycycline for his Rosacea. Left message . needed labs done . Insurance wants Alanis/Markie Spent $2100 for his 3 meds Jardiance and Januvia and Free Style Yulia. 01/21/22 Came to the office . Having some heart burn intermittently Uses Prilosec once a month. His dentist told him that his teeth deterioration suggests that he is having acid reflux. I told him to take the prilosec regularly and get an EGD done to exclude Barretts esophagus. Wll refer to Dr. Eulalio Marie. 08/11/21 Called requesting telehealth visit. Stated he is having small pustular lesions on hos scalp behing the ear and back. This started after he shaved his head 3rd time after his recent Umra in begining of June. His son squuezes out pimple like lesions and he gets greenisg exudate. Not painful. Sent me a picture of it to my phone. Also concerened about his A!c 7.7 Was 7.8 before. On Metformin, Januvia and Markie(Andrewxiga not on his formulary) Has a big vegetable and flower garden and loves to work outsidw for hours at a time. Plans to go to [place] in February. Daughter is organizing the [facility] Summer Camp with Benita 06/26/21 Came to the office Had 3 sessions with [facility] andthe pain/cramps in his legs has almost resolved Went to [facility] on 05/29 21 for Ramadan Umrah with Dr Power, Dr Elkins and myself Came back on 06/13/21 Took Azithromycin for a week 3 days before flying back. Has lost 6 lbs weight . Told him to take Ensure Complete 350 calories with each meals and take 2 avacados a day to increase his weight He is a fussy eater. Also told to use Hibiclens shampoo from [facility] to prevent skin infections in the groin. 05/16/21 Patient called requesting urgent visit. States he has been siting kneeling for an hour or so during Friday jummah prayers for past 3 weeks. Noticed pain and cramp in the right hamstrings and he thouht it will go away. He continued to pray despite the pain subsequent Fridays and now he says he has difficulty i walking. Hasnt taken any OTC. He is leaving to travel abroad on May 29 and will be on a 9 hour flight to [facility] for Ramadan Umrah. Wants to be better before that. Meds reviewed and reconciled . 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 His BS ranges 130-160 now . He has no microabuminuria and his BP is 129/69 and weight is 140 lbs He feels fine . The cough is finally better Took Doxycycline . Took Amoxillin after he had tooth capped by Dr Jannet Soriano. Also saw database security administrator Dr Muhammad. Wants to see another database security administrator as he is retiring. Refer to Dr Coleman. in future . 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 Had tested positive for Covid on 01/13/21 . Was vaccinated . After quarantine period was over tested megative with PCR test and flew to [place] to attend a wedding Came back on 01/23/21. Tested negative before flight and also after he came back.. He has noticed some weakness in the morning and some sweating when he noticed the sufar was low on his Viva Yulia . Also is having a deep cough with phlegm after coming back. Taking mucine, benzonatate and OTC cough syrup with some clearing of mucous. I told him to stop the Jardiance for now and continue with metformin and the Januvia and to get blood tested at [facility]. Has FU with me on 03/05/21. He will call Trudy when I am away, if he needs to be seen. Noticed since past 3 days his morning blood sugar has been in the 53-65. . Today was 63 mg. * ROS:?General/Constitutional:?Denies?Change in appetite.?Denies?Chills.?Admits?Fatigue.?Denies?Fever.?Denies?Headache.?Admits?L ightheadedness.?Denies?Sleep disturbance.?Denies?Weight gain.?Denies?Weight loss.?Respiratory:?Denies?Asthma,?denies.?Denies?Breathing pattern.?Denies?Breathing problems,?denies.?Denies?Chest pain.?Denies?Cough.?Denies?Hemoptysis.?Denies?Pain with inspiration.?Denies?Pneumonia,?denies.?Denies?Shortness of breath,?denies.?Denies?Shortness of breath at rest.?Denies?Shortness of breath with exertion.?Denies?Sputum production,?Pghlegm.?Denies?Tuberculosis,?denies.?Denies?Wheezing.?Cardiovascular:?Denies?Chest pain.?Denies?Chest pain at rest.?Denies?Chest pain with exertion.?Denies?Claudication.?Denies?Cyanosis.?Denies?Difficulty laying flat.?Denies?Dizziness.?Denies?Dyspnea on exertion.?Denies?Fluid accumulation in the legs.?Denies?Heart murmur,?denies.?Denies?Heart problems,?denies.?Denies?High blood pressure,?denies.?Denies?Irregular heartbeat,?denies.?Denies?Orthopnea.?Denies?Palpitations,?denies.?Denies?Rheumat ic fever,?denies.?Denies?Shortness of breath.?Denies?Weakness.?Denies?Weight gain.?Gastrointestinal:?Denies?Abdominal pain.?Denies?Blood in stool.?Denies?Change in bowel habits.?Denies?Colitis,?denies.?Denies?Constipation.?Denies?Decreased appetite.?Denies?Diarrhea.?Denies?Difficulty swallowing.?Denies?Exposure to hepatitis.?Denies?Heartburn.?Denies?Hematemesis.?Denies?Hepatitis,?denies.?Denie s?Nausea.?Denies?Rectal bleeding.?Denies?Stomach problems,?denies.?Denies?Vomiting.?Denies?Weight loss.?Genitourinary:?Denies?Abdominal pain/swelling.?Denies?Blood in urine.?Denies?Difficulty urinating.?Denies?Frequent urination.?Denies?Heavy uterine bleeding,?denies.?Denies?Kidney problems,?denies.?Denies?Pain in lower back.?Denies?Painful urination.?Musculoskeletal:?Denies?Arthritis,?denies.?Denies?Back problems,?denies.?Denies?Carpal tunnel.?Denies?History of Gout,?denies.?Denies?Joint stiffness.?Denies?Leg cramps.?Denies?Muscle aches.?Denies?Pain in shoulder(s).?Denies?Painful joints.?Denies?Sciatica.?Denies?Swollen joints.?Denies?Trauma to arm(s).?Denies?Trauma to hip(s).?Denies?Trauma to knee(s).?Denies?Trauma to ankle(s).?Denies?Weakness.?Peripheral Vascular:?Denies?Absent pulses in hands.?Denies?Absent pulses in feet.?Denies?Blanching of skin.?Blood clots in legs?Denies.?Denies?Cold extremities.?Denies?Decreased sensation in extremities.?Denies?Pain/cramping in legs after exertion.?Denies?Painful extremities.?Denies?Ulceration of feet.?Neurologic:?Denies?Balance difficulty.?Denies?Coordination.?Denies?Difficulty speaking.?Denies?Dizziness.?Denies?Fainting.?Denies?Gait abnormality.?Denies?Headache.?Denies?Irritability.?Denies Loss of strength.?Denies?Loss of use of extremity.?Denies?Low back pain.?Denies?Memory loss.?Denies?Pain.?Denies?Paralysis.?Denies?Seizures.?Stroke?Denies,?denies.?Den ies?Tics.?Denies?Tingling/Numbness.&# 160;Denies?Transient loss of vision.?Denies?Tremor.? * Medical History:? * Surgical History:?Lumbar Chang zainab 1995 Dr Cuadra Had L4-5 discectomy for left sided sciatica . Has been asymptomatic since then 1996Right Inguinal Hernia Repair 2019 [facility] Dr Himanshu Sanchez 2019Wisdom teeth extraction left lower jaw Dentist Dr Jannet Soriano 2015 * Hospitalization/Major Diagno stic Procedure:?STOMACH PAINS IN HOSPITAL FOR COUPLE OF HOURS 2019 * Family History:?Father: manuel rojo.?Mother: .?2 brother(s) - healthy. 2 son(s) , 2 daughter(s) - healthy. .? Born in [facility] [address] [facility]. Parents and uncles migrated from [place] in [place] where they were farmers. Got 16 acres of fam land alloted where wheat, corn and sugar cane . Father Tung Garcia is now 89 yrs old and has mild dementia and lives with his son in village and some time with middle son Melina Verdin in [facility]. Mother Miroslava Hickman in 2002 at age 76 . Has 6 siblings. 3 older sisters #1 Mel marylou 73 yr has DM Lives in [facility] Has 4 sons and 3 dtrs #2 Latifa Marylou 70yrHas CAD, DM 3 sons and 3 dtrs Lives in [facility] #3Anwar Marylou 68 yr with DM. 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 [place] Daughter is a doctor #6Mohdestiny Keaton 56 yr Lives in village and farms the land Has 4 dtrs and 2 sons . Lived in village and helped father farm till age 18 yr After matric went to [facility] to live with uncle Faith Lima. 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 Did not like the grafts and bribes and came to [facility] in 1989 with help of Katie Brizuela a doctor . He had got in 1986 Had a daughter Ale and a son Melina Frausto 6 months old when he left. 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 . 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 Brought his family in 1998. 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 and a [address] warehouse in [place] . * Social History:?Tobacco Use:?Tobacco Use/Smoking?Are you a?nonsmoker ?Additional Findings: Tobacco Non-User?Current non-smoker ?Tobacco use other than smoking?Are you an other tobacco user??No ???Drugs/Alcohol:?Alcohol Screen (Audit-C)?Did you have a drink containing alcohol in the past year??No ?Points?0 ?Interpretation?Negative ?Do you drink alcohol?: NONE. ???08/11/21 Marital HX: Got in 1986 . Had a son and dtr born in [place] He moved to [facility] in 1989 and brought his family here in [address]. [address] [facility] in Jan 1999 and then [address] [place] [address] in [place] , neighbor of Dr Davy Rosario . Has 2 sons and 2 daughters #Ale Ruby 34 yr Got bachelors in psychology from [employer]. 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 He got at age 22 yr to 18 yr eritrean Jenifer Leonardo They have2 sons and a daughter and live half mile away. Omer 7 yr Twin [place] 7 yr, Peterr Mago 5 1/2yr. Going to [employer] in [facility]. [address] #Sanju Ruby 21 yrs High School at [employer] 3rd year doing major in Computer science . 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 Personal Doesnt smoke or drink coffee or tea ACTIVITIES. 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 Went for Hajj in 2002 with cousin and Tino . Then again with in 2005. Then again Umra in 2000 and again woth me and Brittni Power in 2021. * Medications:?TakingBayer Asp irin EC Low Dose 81 MG Tablet Delayed Release 1 tablet Orally Once a day Lipoic Acid 150 MG Capsule as directed Orally FreeStyle Yulia Dalton - Device READER DX: DM TYPE 2 E11.9 TEST SUGARS Bacitracin Zinc-Aloe 500 UNIT/GM Ointment 1 application Externally Once a day Januvia 100 MG Tablet TAKE 1 TABLET BY MOUTH DAILY Omeprazole 20 MG Capsule Delayed Release TAKE 1 CAPSULE BY MOUTH EVERY DAY metFORMIN HCl 1000 MG Tablet TAKE 1 TABLET BY MOUTH TWICE DAILY WITH MEALS Cyclobenzaprine HCl 5 MG Tablet TAKE 1 TABLET BY MOUTH THREE TIMES DAILY Clopidogrel Bisulfate 75 MG Tablet 1 tablet Orally Once a day FreeStyle Yulia 14 Day Sensor - Miscellaneous as directed DX: DM TYPE 2 E11.9 TEST SUGARS DAILY Bacitracin Zinc 500 UNIT/GM Ointment 1 application Externally Once a day , stop date 12/15/2022lindamycin Phosphate 1 % Lotion 1 application Externally Twice a day prn Cephalexin 500 MG Tablet 1 tablet Orally Twice a day , stop date 12/15/2022FreeStyle Lite Test - Strip as directed In Vitro To Test BS QD. DX: E11.9 Rosuvastatin Calcium 5 MG Tablet TAKE 1 TABLET BY MOUTH EVERY DAY Jardiance 10 MG Tablet TAKE 1 TABLET BY MOUTH EVERY DAY Taking Tsering Aspirin EC Low Dose 81 MG Tablet Delayed Release 1 tablet Orally Once a day Taking Lipoic Acid 150 MG Capsule as directed Orally Taking FreeStyle Yulia Dalton - Device READER DX: DM TYPE 2 E11.9 TEST SUGARS Taking Bacitracin Zinc-Aloe 500 UNIT/GM Ointment 1 application Externally Once a day Taking Januvia 100 MG Tablet TAKE 1 TABLET BY MOUTH DAILY Taking Omeprazole 20 MG Capsule Delayed Release TAKE 1 CAPSULE BY MOUTH EVERY DAY Taking metFORMIN HCl 1000 MG Tablet TAKE 1 TABLET BY MOUTH TWICE DAILY WITH MEALS Taking Cyclobenzaprine HCl 5 MG Tablet TAKE 1 TABLET BY MOUTH THREE TIMES DAILY Taking Clopidogrel Bisulfate 75 MG Tablet 1 tablet Orally Once a day Taking FreeStyle Yulia 14 Day Sensor - Miscellaneous as directed DX: DM TYPE 2 E11.9 TEST SUGARS DAILY Taking Bacitracin Zinc 500 UNIT/GM Ointment 1 application Externally Once a day , stop date 12/15/2022Taking Clindamycin Phosphate 1 % Lotion 1 application Externally Twice a day prn Taking Cephalexin 500 MG Tablet 1 tablet Orally Twice a day , stop date 12/15/2022Taking FreeStyle Lite Test - Strip as directed In Vitro To Test BS QD. DX: E11.9 Taking Rosuvastatin Calcium 5 MG Tablet TAKE 1 TABLET BY MOUTH EVERY DAY Taking Jardiance 10 MG Tablet TAKE 1 TABLET BY MOUTH EVERY DAY Not-TakingBetamethasone Valerate 0.1 % Ointment 1 application to affected area Externally Once a day , Notes to Pharmacist: PRNBenzonatate 100 MG Capsule 1 capsule as needed Orally Three times a day Metrogel 1 % Gel 1 application to affected area Externally Once a day , Notes to Pharmacist: PRNDiclofenac Sodium 50 MG Tablet Delayed Release 1 tablet as needed Orally Twice a day Azithromycin 500 MG Tablet 1 Orally Once a day Medication List reviewed and reconciled with the patientNot-Taking Betamethasone Valerate 0.1 % Ointment 1 application to affected area Externally Once a day , Notes to Pharmacist: PRNNot-Taking Benzonatate 100 MG Capsule 1 capsule as needed Orally Three times a day Not-Taking Metrogel 1 % Gel 1 application to affected area Externally Once a day , Notes to Pharmacist: PRNNot-Taking Diclofenac Sodium 50 MG Tablet Delayed Release 1 tablet as needed Orally Twice a day Not-Taking Azithromycin 500 MG Tablet 1 Orally Once a day Medication List reviewed and reconciled with the patient * Allergies:?N.K.D.A.no[Allerg ies Verified] Objective: * Vitals:?Temp:98.7F, HR:74/mi n, BP:128/66mm Hg, Wt:143lbs, BMI:22.39Index, Ht: 67 in, Oxygen sat %:97%, Ht-cm: 170.18 cm, Wt-k.86kg. * Examination: ???General Examination: ?GENERAL APPEARANCE:?Thin slight built male with a collazo colored cropped walker and moustache in no acute distress, well developed, well nourished. Articulate and interactive..?HEAD:?normocephalic, atraumatic.?EYES:?pupils equal, round, reactive to light and accommodation.?EARS:?normal.?ORAL CAVITY:?mucosa moist.?THROAT:?clear.?NECK/THYROID:?neck supple, full range of motion, no cervical lymphadenopathy.?SKIN:?no suspicious lesions, warm and dry.?HEART:?no murmurs, regular rate and rhythm, S1, S2 normal.?LUNGS:?clear to auscultation bilaterally.?ABDOMEN:?normal, bowel sounds present, soft, nontender, nondistended.?EXTREMITIES:?no clubbing, cyanosis, or edema.?NEUROLOGIC:?nonfocal, motor strength normal upper and lower extremities, sensory exam intact.? 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 Restarted Jardiance 5 weeks ago. Will chdecide upon treatment change? Plan: * Treatment: * Procedure Codes:? * Follow Up:?4 Months * Billing Information: * Visit Code:? 38338 Office Visit, Est Pt., Level 4. * Procedure Codes:? * Sign off status: Completed true * Provider:?Antony Mortensen MD Date:?2022 Generated for Crystal toledo/Lorenzo/eTransmitting on:?03/25/2024 03:26 PM EST History and Physical Notes * HPI (History of Present Illness) Category Sub-Category Detail Notes Category Not es Constitutional 11/05/22 Looking well. His cut has healed . Filing for taxes with late extension . Had cologuard Jan 2021 which was negative . Did not go for EGD. No other concerns. 09/16/22 Urgent visit Was using electrical saw and cut the skin of his left palm ar the base of the thumb. Happend last . He cleaned it up. It did bleed profusely . He used bacitricin cream and bandage . Comes today for wound check as he is a diabetic. I examined the wound Z shaped skin laceration with clean margin about 2 cm.in length. 06/19/22 Got message from ASHLEY Hyde on 05/27/22 for his GI appointment . Got call 4 months late. Meds reviewed and reconciled Compliant. Needs refill of Doxycycline for his Rosacea. Left message . needed labs done . Insurance wants Alanis/Markie Spent $2100 for his 3 meds Jardiance and Januvia and Free Style Yulia. 01/21/22 Came to the office . Having some heart burn intermittently Uses Prilosec once a month. His dentist told him that his teeth deterioration suggests that he is having acid reflux. I told him to take the prilosec regularly and get an EGD done to exclude Barretts esophagus. Wll refer to Dr. Eulalio Marie. 08/11/21 Called requesting telehealth visit. Stated he is having small pustular lesions on hos scalp behing the ear and back. This started after he shaved his head 3rd time after his recent Umra in begining of June. His son squuezes out pimple like lesions and he gets greenisg exudate. Not painful. Sent me a picture of it to my phone. Also concerened about his A!c 7.7 Was 7.8 before. On Metformin, Ganesh and Markie(Farxiga not on his formulary) Has a big vegetable and flower garden and loves to work outsidw for hours at a time. Plans to go to [place] in February. Daughter is organizing the [facility] Summer Camp with [employer] 06/26/21 Came to the office Had 3 sessions with [facility] andthe pain/cramps in his legs has almost resolved Went to [facility] on 05/[address] Power, Dr Elkins and myself Came back on 06/13/21 Took Azithromycin for a week 3 days before flying back. Has lost 6 lbs weight . Told him to take Ensure Complete 350 calories with each meals and take 2 avacados a day to increase his weight He is a fussy eater. Also told to use Hibiclens shampoo from [facility] to prevent skin infections in the groin. 05/16/21 Patient called requesting urgent visit. States he has been siting kneeling for an hour or so during Friday jumma prayers for past 3 weeks. Noticed pain and cramp in the right hamstrings and he thouht it will go away. He continued to pray despite the pain subsequent Fridays and now he says he has difficulty i walking. Hasnt taken any OTC. He is leaving to travel abroad on May 29 and will be on a 9 hour flight to [facility]. Wants to be better before that. Meds reviewed and reconciled . 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 His BS ranges 130-160 now . He has no microabuminuria and his BP is 129/69 and weight is 140 lbs He feels fine . The cough is finally better Took Doxycycline . Took Amoxillin after he had tooth capped by Dr Jannet Soriano. Also saw database security administrator Dr Muhammad. Wants to see another database security administrator as he is retiring. Refer to Dr Coleman. in future . 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 Had tested positive for Covid on 01/13/21 . Was vaccinated . After quarantine period was over tested megative with PCR test and flew to [place] to attend a wedding Came back on 01/23/21. Tested negative before flight and also after he came back.. He has noticed some weakness in the morning and some sweating when he noticed the sufar was low on his Viva Yulia . Also is having a deep cough with phlegm after coming back. Taking mucine, benzonatate and OTC cough syrup with some clearing of mucous. I told him to stop the Jardiance for now and continue with metformin and the Januvia and to get blood tested at [facility]. Has FU with me on 03/05/21. He will call Trudy when I am away, if he needs to be seen. Noticed since past 3 days his morning blood sugar has been in the 53-65. . Today was 63 mg. Examination Category Sub-Category Detail Notes Category Not es General Examination GENERAL APPEARANCE: Thin sli ght built male with a collazo colored cropped walker and moustache in no acute distress, well developed, well nourished. Articulate and interactive. HEAD: normocephalic, atrau matic EYES: pupils equal, round, reactive to light and accommodation EARS: normal THROAT: clear NECK/THYROID: neck supple, full ra nge of motion, no cervical lymphadenopathy HEART: no murmurs, regular rate and rhythm, S1, S2 normal LUNGS: clear to auscultatio n bilaterally ABDOMEN: normal, bowel sounds present, soft, nontender, nondistended NEUROLOGIC: nonfocal, motor stre ngth normal upper and lower extremities, sensory exam intact SKIN: no suspicious lesion s, warm and dry EXTREMITIES: no clubbing, cyanosi s, or edema ORAL CAVITY: mucosa moist
[2024-03-25 15:39] LABS: Glucose, Whole Blood 144 mg/dL (60-115)
--- OUTSIDE RECORDS SUMMARY | 2024-03-25 16:09 | XMS_ITS | Clinical Summary ---
Author Organization [facility] Address [address] [place] [address] Care Team Providers Care Dry Starch Supervisor Name Role Phone Unknown, Primary Care Provider [...] age to complete this topic Care Teams Dry Starch Supervisor Relationship Specialty Start Date End Date Unknown, PCP - General 10/26/20
== END 2024-03-25 16:26 | disposition home or self-care (01) ==
PROVIDERS: PCP Internal Medicine; Visit Provider Student in an Organized Health Care Education/Training Program
DX: E11.65 Type 2 diabetes mellitus with hyperglycemia (principal); F40.298 Other specified phobia; E78.2 Mixed hyperlipidemia; Z13.9 Encounter for screening, unspecified
CPT/HCPCS: 95251; 99205

== ENCOUNTER 2024-04-13 16:05 | Outpatient (AMB) | payer OTHER, SELFPAY ==
--- NOTE | 2024-04-13 16:37 | A.OFFVIS_ITS ---
Intake Intake Visit Reasons: T2DM Blood Bank Laboratory Professional Required: No Accompanied by: Self / Same As Patient Allergies No Known Allergies Allergy (Verified 03/25/24 15:30) HPI Comprehensive Diabetes Asmnt Most Recent Diabetes Results: Hemoglobin A1c 7.0 % 08/04/19 Microalb/Creat Ratio TNP 12/05/21 Cholesterol 100 mg/dL 04/26/21 HDL Cholesterol 63 mg/dL 04/26/21 Triglycerides 23 mg/dL 04/26/21 Creatinine 0.94 mg/dL (0.5-1.4) 07/10/21 Blood Urea Nitrogen 21 mg/dL (9-16) H 07/10/21 Sodium 139 mmol/L (135-145) 07/10/21 Potassium 4.0 mmol/L (3.3-5.1) 07/10/21 Chloride 104 mmol/L (96-108) 07/10/21 Carbon Dioxide 28 mmol/L (22-29) 07/10/21 Calcium 9.6 mg/dL (8.4-10.2) 07/10/21 AST 16 U/L (5-37) 07/10/21 ALT 18 U/L (0-40) 07/10/21 Total Protein 6.8 g/dL (6.5-8.0) 07/10/21 Albumin 4.2 g/dL (3.5-5.0) 07/10/21 [facility] Medical History (Updated 03/25/24 @ 16:30 by Elena Leonardo MD) HLD (hyperlipidemia) Needle phobia Vitamin D deficiency Cobalamin deficiency Diabetes type 2, uncontrolled Surgical History Hx of hernia repair Hx of right inguinal hernia repair History of back surgery Family History Father No problems noted. Mother Diabetes mellitus Social History Alcohol intake: never Assessment & Plan Assessment & Plan (1) Diabetes type 2, uncontrolled: Code(s): E11.65 - Type 2 diabetes mellitus with hyperglycemia Qualifiers: Glycemic state: with hyperglycemia Qualified Code(s): E11.65 - Type 2 diabetes mellitus with hyperglycemia Plan: Diabetes self-management education and support participation record Assessment/scale: 1= needs instructed? 2= needs review? 3= comprehend keep point? 4= demonstrates understanding/ competent? NC= Not Covered Topics Learning Objective: Initial visit Initial or post srvc Initial or post srvc Initial or post srvc Initial or post srvc Initial or post srvc Post srvc Comments Pre Edu-assessment/plan Outcome or reassess Outcome or reassess Outcome or reassess Outcome or reassess Outcome or reassess Outcome or reassess Diabetes pathophysiology 1 Healthy eating 2 Being active 1 Taking medication 2 Monitoring glucose 1 Acute complication Chronic complicated Lifestyle and healthy coping Diabetes distress in support ?Diabetes pathophysiology: ?Defined diabetes med identify own type of diabetes; list 3 options for treating diabetes Healthy eating: ?Described effect of type, amount and ?timing of food on blood glucose; list 3 methods for planning meal Being active: ?State effect of exercise on blood glucose level Taking medication: ?State effect of diabetes medications on diabetes; name diabetes medications taking, action and side effects Monitoring glucose: ?Identify recommended blood glucose targets and personal target Acute complication: ?List symptoms and treatment of hyper and hypoglycemia, DKA, sick day guidelines and guidelines for severe weather or situations of crisis and diabetes supply manage Chronic complication: ?To find the relationship of blood glucose levels to long- term complications of diabetes in screening and preventative measures Lifestyle and healthy coping: ?Described lifestyle and healthy coping strategies to rule out diabetes self-management Diabetes to stress and support: ?Recognize Diabetes to stress and be able to identified support options Patient Assessment Assess patient education level/literacy/barriers, 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 Lives with family. Spouse does majority of food shopping and meal preparation, patient does report since April 10 he has been fasting per tradition of Ramadan Patient questions/concerns, patient currently using Yulia 3 +sensor with cell phone eitan, complains of some connectivity issues in addition to Yulia 3 sensor he is also wearing Yulia 2 sensor, with smart phone eitan. discussed with patient how having both apps on cell phone can sometimes disrupt bluetooth signal. Would recommend using 1 sensor, removing other eitan from cell phone. Patient's last A1c on 03/25/2024 9% Patient's glucose for the past 14 days 158 mg/dL above target 23% At target 77% Below target 0% Patient is currently taking metformin 1000 mg b.i.d. Jardiance 25 mg daily Patient recently had Ozempic increased from 0.25 mg to 0.5 mg weekly, no complaint of GI upset, constipation or diarrhea Patient denies missing medications Learning objectives: The patient was provided with verbal and written education on the following topics as outlined below. The patient met all learning objectives and was able to verbalize understanding and provide teach back of education topics discussed . The patient was provided with the opportunity to ask questions and all questions were answered. What is Diabetes? Pathophysiology How the body produces and uses insulin Identify type of DM Risk factors Signs of Diabetes Brief overview of Diabetes Management Monitoring blood sugar Following a meal plan Regular exercise Maintaining a healthy weight Taking medication as needed Members of the care team (PCP, RN, MA, RD, CDE, pipeline inspector) Blood glucose monitoring When/how often to test Target blood sugar ranges Introduction to Nutrition Importance of healthy diet in managing DM Diet is personalized to individual preference Review patient?s regular diet/food preferences Who prepares meals/does food shopping/ Dining out?/ Barriers? How diet effects glucose Eating 3 balanced meals a day with small, healthy snacks between meals Review food groups Carbohydrates: What is a carbohydrate/Which food/food groups are considered carbohydrates Effect of carbohydrates on blood glucose Portion sizes Reading food labels Basic carb counting (if applicable per nursing assessment) Plate method Meal planning Recommendations: Follow plate method, consistent carbs and read nutritional labels. Smart Goal: Patient will identify carbohydrates that he is currently eating at meals and snacks by next visit Educational Materials: The patient was provided with the following written educational materials: Planning Healthy Meals Handout Patient Response to instructions: Comprehension of Instructions: Fair Readiness to make changes: Contemplation How confident they feel about making changes: Positive Portions of this note were created using voice recognition software, please excuse any words or phrases that may have been misinterpreted. Patient Instructions: Include regular daily activity. ADA recommends 30 minutes of exercise 5 days a week. Weight loss talk to PCP or Fixture Designer before starting new plan. Test blood sugar as directed; Fasting and 2hpp largest meal. Watch trends in results. Utilize results and to assess how food, physical activity and medications affect blood sugar results. Bring glucometer or CGM to next visit. Be knowledgeable about diabetes medication, its action, side effects, efficacy, toxicity, prescribed dosage, appropriate timing and frequency of administration, effect of missed and delayed doses and instructions for storage, travel and safety. Problem solving techniques to monitor hypo/hyperglycemia episodes and treatments. Reduce risk reduction behaviors, smoking cessation, regular eye, foot and dental examinations. Coding Level of Care Code Est Pt Level 1 (71584) Diagnoses Uncontrolled type 2 diabetes mellitus with hyperglycemia E11.65 Glycemic state: with hyperglycemia
--- OUTSIDE RECORDS SUMMARY | 2024-04-13 19:57 | XMS_ITS | Clinical Summary ---
Author Organization [facility] Address [address] [place] [address] Care Team Providers Care Brass Instrument Repair Technician Name Role Phone Unknown, Primary Care Provider [...] age to complete this topic Care Teams Brass Instrument Repair Technician Relationship Specialty Start Date End Date Unknown, PCP - General 10/26/20
--- OUTSIDE RECORDS SUMMARY | 2024-04-13 19:57 | XMS_ITS | Patient Health Record ---
Author Organization [facility] Address [address] [place] [address] Care Team Providers Care Bill Adjuster Name Role Phone ANTONY MORTENSEN Primary Care Provider Antony Mortensen Unavailable [phone] Allergies No Known Allergies Reason For Referral [...] Januvia 100 MG TAKE 1 TABLET BY AKMRAN TH DAILY for 90 Active Omeprazole 20 [...] a day prn 05/18/2021 Active FreeStyle Yulia [place] - READER DX: DM T YPE 2 [...] dtr born in [place] He moved to [place] in 1989 and brought his family here in [address]. [address] [facility] in Jan 1999 and then moved in [address] [place] [address] in [place] , neighbor of Dr Davy Rosario . Has 2 sons and 2 daughters #Ale Ruby 32 yr Got bachelors in psychology from [employer]. 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 He got at age 22 yr to 18 yr austrian Jenifer Leonardo They have2 sons and a daughter and live [place] mile away #Sanju Ruby 20 yrs High School at [employer] 3rd year doing major in [employer] science . Lives at home #Lupe Martin 18 yr Goes to [employer] Plans to go to [facility] in Fall Personal Doesnt smoke or drink coffee or tea ACTIVITIES. 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 Had a son and dtr born in [place] He moved to [place] in 1989 and brought his family here in [address]. Bought [address] [facility] in Jan 1999 and then moved in [address] [place] [address] in [place] , neighbor of Dr Davy Rosario . Has 2 sons and 2 daughters #Ale Pughudhry 32 yr Got bachelors in psychology from [employer]. 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 He got at age 22 yr to 18 yr austrian Jenifer Leonardo They have2 sons and a daughter and live half mile away #Sanju Ruby 20 yrs High School at [employer] 3rd year doing major in [employer] science . Lives at home #Lupe Martin 18 yr Goes to [employer] [facility] Plans to go to [facility] in Fall Personal Doesnt smoke or drink coffee or tea ACTIVITIES. 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 Had a son and dtr born in [place] He moved to [place] in 1989 and brought his family here in [address]. Bought [address] [facility] in Jan 1999 and then moved in [address] [place] [address] in [place] , neighbor of Dr Davy Rosario . Has 2 sons and 2 daughters #Alerosy Ruby 32 yr Got bachelors in psychology from [employer]. 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 He got at age 22 yr to 18 yr austrian Jenifer Leonardo They have2 sons and a daughter and live half mile away #Asma Tung 20 yrs High School at [employer] 3rd year doing major in [employer] science . Lives at home #Lupe Martin 18 yr Goes to [employer] Plans to go to [facility] in Fall Personal Doesnt smoke or drink coffee or tea ACTIVITIES. 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 Had a son and dtr born in [place] He moved to [place] in 1989 and brought his family here in 1998. B[facility] in Jan 1999 and then moved in [address] [place] [address] in [place] , neighbor of Dr Davy Rosario . Has 2 sons and 2 daughters #Ale Tung 32 yr Got bachelors in psychology from [employer]. 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 He got at age 22 yr to 18 yr austrian Jenifer Leonardo They have2 sons and a daughter and live half mile away #Asma Tung 20 yrs High School at [employer] 3rd year doing major in [employer] science . Lives at home #Lupe Martin 18 yr Goes to [employer] Plans to go to [facility] in Fall Personal Doesnt smoke or drink coffee or tea ACTIVITIES. 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 Had a son and dtr born in [place] He moved to [place] in 1989 and brought his family here in [address]. Bought [address] [facility] in Jan 1999 and then moved in [address] [place] [address] in [place] , neighbor of Dr Davy Rosario . Has 2 sons and 2 daughters #Ale Pughudhry 32 yr Got bachelors in psychology from [employer]. 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 He got at age 22 yr to 18 yr austrian Jenifer Leonardo They have2 sons and a daughter and live half mile away #Sanju Ruby 20 yrs High School at [employer] 3rd year doing major in [employer] science . Lives at home #Lupe Martin 18 yr Goes to [employer] Plans to go to [facility] in Fall Personal Doesnt smoke or drink coffee or tea ACTIVITIES. 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 Had a son and dtr born in [place] He moved to [place] in 1989 and brought his family here in [address]. Bought [address] [facility] in Jan 1999 and then moved in [address] [place] [address] in [place] , neighbor of Dr Davy Rosario . Has 2 sons and 2 daughters #Ale Tung 32 yr Got bachelors in psychology from [employer]. 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 He got at age 22 yr to 18 yr austrian Jenifer Leonardo They have2 sons and a daughter and live half mile away #Asmbrittanie PughTung 20 yrs High School [facility] [employer] 3rd year doing major in [employer] science . Lives at home #Lupe Martin 18 yr Goes to [employer] Plans to go to [facility] in Fall Personal Doesnt smoke or drink coffee or tea ACTIVITIES. 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 Had a son and dtr born in [place] He moved to [place] in 1989 and brought his family here in 1998. B[facility] Jan 1999 and then moved in [address] [place] [address] in [place] , neighbor of Dr Davy Rosairo . Has 2 sons and 2 daughters #Ale Ruby 32 yr Got bachelors in psychology from [employer]. 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 He got at age 22 yr to 18 yr austrian Jenifer Leonardo They have2 sons and a daughter and live half mile away #Asma Tung 20 yrs [facility] [employer] 3rd year doing major in [employer] science . Lives at home #Lupe Martin 18 yr Goes to [employer] Plans to go to [facility] in Fall Personal Doesnt smoke or drink coffee or tea ACTIVITIES. 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 Had a son and dtr born in [place] He moved to [place] in 1989 and brought his family here in [address] [facility] in Jan 1999 and then moved in [address] [place] [address] in [place] , neighbor of Dr Davy Rosario . Has 2 sons and 2 daughters #lAe Pughudhry 32 yr Got bachelors in psychology from [employer]. 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 He got at age 22 yr to 18 yr austrian Jenifer Leonardo They have2 sons and a daughter and live [place] away #Sanju Pughudhry 20 yrs High School at [employer] 3rd year doing major in [employer] science . Lives at home #Lupe Martin 18 yr Goes to [employer] Plans to go to [facility] in Fall Personal Doesnt smoke or drink coffee or tea ACTIVITIES. 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 Had a son and dtr born in [place] He moved to [place] in 1989 and brought his family here in [address]. Bought [address] [facility] in Jan 1999 and then moved in [address] [place] [address] in [place] , neighbor of Dr Davy Rosario . Has 2 sons and 2 daughters #Alerosy Ruby 32 yr Got bachelors in psychology from [employer]. 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 He got at age 22 yr to 18 yr austrian Jeniferinder Leonardo They have2 sons and a daughter and live half mile away #Kingbrittanie Tung 20 yrs High School at [employer] 3rd year doing major in [employer] science . Lives at home #Lupe Martin 18 yr Goes to [employer] Plans to go to [facility] in Fall Personal Doesnt smoke or drink coffee or tea ACTIVITIES. 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 Had a son and dtr born in [place] He moved to [place] in 1989 and brought his family here in 1998. B[facility] in Jan 1999 and then moved in [address] [place] [address] in [place] , neighbor of Dr Davy Rosario . Has 2 sons and 2 daughters #Ale Ruby 34 yr Got bachelors in psychology from [employer]. 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 He got at age 22 yr to 18 yr austrian Jenifer Leonardo They have2 sons and a daughter and live half mile away. Omer 7 yr Twin [place] 7 yr, Paul Mercedes 5 1/2yr. Going to [employer] in [facility]. [address] #Sanju Ruby 21 yrs High School at [employer] 3rd year doing major in Computer science . 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 Going to [facility] in [place]. Personal Doesnt smoke or drink coffee or tea ACTIVITIES. 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 Went for Hajj in [address] Jiménez . Then again with in 2005. Then again Umra in 2000 and again woth me and Brittni Power in 2021. 08/11/21 Marital HX: Got in 1986 . Had a son and dtr born in [place] He moved to [place] in 1989 and brought his family here in 1998. B[facility] in Jan 1999 and then moved in [address] [place] [address] in [place] , neighbor of Dr Davy Rosario . Has 2 sons and 2 daughters #Ale Ruby 34 yr Got bachelors in psychology from [employer]. 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 He got at age 22 yr to 18 yr austrian Jenifer Leonardo They have2 sons and a daughter and live half mile away. Omer 7 yr Twin [place] 7 yr, Moisedeion Mercedes 5 1/2yr. Going to [employer] in [facility]. [address] #Sanju Ruby 21 yrs High School at [employer] 3rd year doing major in Computer science . 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 Personal Doesnt smoke or drink coffee or tea ACTIVITIES. 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 Went for Hajj in [address] Jiménez . Then again with in 2005. Then again Umra in 2000 and again woth me and Talal george Power in 2021. 08/11/21 Marital HX: Got in 1986 . Had a son and dtr born in [place] He moved to [place] in 1989 and brought his family here in 1998. [facility] in Jan 1999 and then moved in [address] [place] [address] in [place] , neighbor of Dr Davy Rosario . Has 2 sons and 2 daughters #Ale Ruby 34 yr Got bachelors in psychology from [employer]. 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 He got at age 22 yr to 18 yr austrian Jenifer Leonardo They have2 sons and a daughter and live half mile away. Omer 7 yr Twin [place] 7 yr, Paul Mercedes 5 1/2yr. Going to [employer] in [facility]. [address] Flori Ruby 21 yrs High School [facility] [employer] 3rd year doing major in Computer science . 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 [facility] Going to [facility] in [place]. Personal Doesnt smoke or drink coffee or tea ACTIVITIES. 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 Went for Hajj in [address] Jiménez . Then again with in 2005. Then again Umra in 2000 and again woth and Brittni Power in 2021. 08/11/21 Marital HX: Got in 1986 . Had a son and dtr born in [place] He moved to [place] 1989 and brought his family here in [address]. [address] [facility] in Jan 1999 and then moved in [address] [place] [address] in [place] , neighbor of Dr Davy Rosario . Has 2 sons and 2 daughters #Ale Ruby 34 yr Got bachelors in psychology from [employer]. 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 He got at age 22 yr to 18 yr austrian Jenifer Leonardo They have2 sons and a daughter and live half mile away. Omer 7 yr Twin [place] 7 yr, Paul Diggsor 5 /2yr. Going to [employer] in [facility]. [address] #Sanju Ruby 21 yrs High School at [employer] 3rd year doing major in Computer science . 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 [facility] Going to [facility] in [place]. Personal Doesnt smoke or drink coffee or tea ACTIVITIES. 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 Went for Hajj in [address] Jiménez . Then again with in 2005. Then again Umra in 2000 and again woth and Brittni Power in 2021. Problems Problem Type SNOMED Code ICD Code Onset Dates Problem Status W/U Status Risk Notes Problem Acne vulgaris (69145525) Acne vulgaris (L70.0) Active confirmed Given trenitoin cream by Dr Matty TEJADA Problem Rosacea (704572019) Other rosacea (L71.8) Active confirmed Saw Dr Muhammad Given Metronidazole Cream He is retiring Will send to Dr Coleman Problem Disorder of skin AND/OR subcutaneous tissue (99946632) Disorder of the skin and subcutaneous tissue, unspecified (L98.9) Active confirmed Problem Rosacea (041148855) Rosacea (L71.9) Active confirmed Will give metrogel and doxy Problem Gastroesophageal reflux disease (115508035) GERD (gastroesophag eal reflux disease) (K21.9) Active confirmed 01/21/22 Will refer to GI to exclude Barretts Problem Diabetes mellitus without complication (507672951) Diabetes (E11.9) Active confirmed 01/29/21 A1c was 8.4 in September Will recheck 02/20/21 A1C 8.1 Had stopped Jardiance as noticed BS was in 40-60 range but 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 Restarted Jardiance 5 weeks ago. Will chdecide upon treatment change Problem Hypoglycemia (998548152) Hypoglycemia (E16.2) Active confirmed 01/29/21 Will stop jardiance He will monitor Problem Chronic cough (97996870) Chronic cough (R05) Active confirmed Noticed this started after his Covid infection It has resolved but gets occasional bouts of dry cough . Also noticed when he is reading the Quran in morning with Sheikh Julio at the [facility] in the morning he feels he gets out of breath It is a new symptoms I told him he should get PFTs and should see Dr Cartagena and Ill give him montelukast to see if there is an allergic component Problem 741288295 Family history of coronary artery disease (Z82.49) Active confirmed Problem Right bundle branch block (07686289) Right bundle branch block (RBBB) (I45.10) Active confirmed Problem Family history of CVA (397012820) Family history of CVA (Z82.3) Active confirmed Problem Requires vaccination (400466335) COVID-19 vaccine administered (Z23) Active confirmed Got booster jab 12/07/20 Problem 846033479582 Strain of right hamstring muscle, initial encounter (S76.311A) Active confirmed will refer to PT for eval Problem 2396668065573088 Tendinitis of left shoulder (M77.8) Active confirmed 06/19/22 Happened 04/29/22 Got better after icing Problem Chronic folliculitis (545810035) Chronic folliculitis (L73.9) Active confirmed Problem 412513545 Penetrating wound (T14.8XXA) Active confirmed 09/16/22 Not infected Will order TDap Last one 11 years ago Plan Of Treatment Pending Test Test Name Order Date Hemoglobin A1c 06/19/2022 Hemoglobin A1c 09/16/2022 Lipid Panel 06/19/2022 Chem-Comprehensive 09/16/2022 Chem-Comprehensive 06/19/2022 Insurance Providers Payer Name Payer Address Payer Phone Subscriber Number Group Number Insured Name Patient Relationship to Insured Coverage Start Date Coverage End Date [address] [place] [address] [id number] Lupe Ruby Self - patient is the insured Medical (General) History Medical History History ICD Code Chicken pox and measles in childhood Type 2 Diabetes Mellitus. Dx when cousin Mario checked his BS [address] Cartagena and put on Metformin Glipizide was also started but stopped as he had hypoglycemia Started seeing Willard López(from [facility]) Favor Maker in [place] 3 years ago. A1c 8.5 Started on Lantis 18 units . Stopped 18 months ago Put on Januvia , metformin and Repaglanide(he stopped Mar 2020 himself) He has CGM Suzie and last A1C was 7.8 5 months ago Left knee pain since 2017 [place] [address] Dr Espinoza, Orthopedic surgeon in [place] Had XRay and Dr Manzano MRI Told will need arthroscopic surgery He felt better after 2 months . ! Hx of abdominal pain Went to ED twice 2016 and [address] abdomen Discharged on omeprazole . Not taking it, Weight loss Used to weigh 155 lbs and no w 143 lbs States he eats better Hospitalization in [facility] with chills and diarrhea severe 2018 Given IV fluids Discharged after 2 hours Family History of Diabetes M other. 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 Told not to worry. No testing done [...] properly Saw GI Dr Hank Marie at [facility] Covid Positive 12/13/20 Expos ed to grand daughter 4 days earlier who was Covid Positive Arranged for monoclonal antibody infusion 12/15/20 at [facility] Rosacea sees Dr Muhammad Last 01/30/21 Give n Metronidazole cream Acne Vulgaris Dr Muhammad prescribes trenit oin cream Surgical History Surgery Date(Month/Year) Lumbar Surgery 1995 Dr Cuadra Had L4-5 discectomy for left sided sciatica . Has been asymptomatic since then 1995 Right Inguinal Hernia Repair [address] [facility] Dr Himanshu Sanchez 2019 [place] teeth extraction left lower jaw D randall Soriano 2015 Hospitalization History Reason Date(Month/Year) STOMACH PAINS IN HOSPITAL FOR COUPLE OF HOURS 2018
--- OUTSIDE RECORDS SUMMARY | 2024-04-13 19:57 | XMS_ITS ---
Author Organization [facility] Address [address] [facility] [address] [place] [address] Care Team Providers Care Medical Doctor Name Role Phone ANTONY MORTENSEN Primary Care Provider Antony Mortensen Unavailable [phone] Medications Medication SIG (Take, Route, Fr equency, Duration) Notes Start Date End Date Status Azithromycin 500 MG 1 Orally Once a day for 14 days Active Tretinoin 0.025 % 1 application in the evening to face Externally Once a day for 30 days Active Encounters Encounter Location Date Provider Diagnosis [facility] [address] [address] 12/24/2022 ANTONY MORTENSEN Plan Of Treatment Medication Medication Name Sig Start Date Stop Date Notes Azithromycin 500 MG 1 Orally Once a day for 14 days Tretinoin 0.025 % 1 application in the evening to face Externally Once a day for 30 days Progress Notes * Lupe RUBY SDOB: [birth year] (62 yo M)Acc No.[id number]:12/24/2022 Patient:?Monet Ruby :1960???Age:62 Y???Sex:Male Address:[address], [place], [address] * Refills? Refill Azithromycin Tablet, 500 MG, Orally, 14, 1, Once a day, 14 days, Refills=0 Start Tretinoin Cream, 0.025 %, Externally, 45 Gram, 1 application in the evening to face, Once a day, 30 days, Refills=1 * true * Date:? Generated for Crystal toledo/Lorenzo/eTransmitting on:?04/13/2024 07:57 PM EST
--- OUTSIDE RECORDS SUMMARY | 2024-04-13 19:58 | XMS_ITS ---
Author Organization [facility] Address [address] [place] [address] [address] [place] [address] Care Team Providers Care Machinist Mechanic Name Role Phone ANTONY MORTENSEN Primary Care Provider [phone] Anotny Mortensen Unavailable [phone] Allergies No Known Allergies REASON FOR VISIT [...] day for 30 day(s) Active FreeStyle Yulia Nora - READER DX: DM T YPE 2 [...] dtr born in [place] He moved to [facility] in 1989 and brought his family here in [address]. [address] [facility] in Jan 1999 and then moved in [address] [place] [address] in [place] , neighbor of Dr Davy Rosario . Has 2 sons and 2 daughters #Ale Ruby 34 yr Got bachelors in psychology from [employer]. 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 He got at age 22 yr to 18 yr sierra leonean Jenifer Leonardo They have2 sons and a daughter and live half mile away. Omer 7 yr Twin Clif[place] 7 yr, Paul Mercedes 5 1/2yr. Going to [employer] in [place] [address] #Sanju Ruby 21 yrs High School at [employer] 3rd year doing major in 1spire science . 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 Personal Doesnt smoke or drink coffee or tea ACTIVITIES. 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 Daughter is organizing the [facility] Summer Camp with Benita 06/26/21 Came to the office Had 3 sessions with [facility] andthe pain/cramps in his legs has almost resolved Went to [facility] on 05/29 21 for Ramadan Umrah [...] Also told to use Hibiclens shampoo from [employer] to prevent skin infections in the groin. [...] be on a 9 hour flight to [facility] for Ramadan Umrah. Wants to be better [...] capped by Dr Jannet Soriano. Also saw insulation worker Dr Muhammad. Wants to see another insulation worker as he is retiring. Refer to Dr Coleman. in future . 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. Has FU with me on 03/05/21. He [...] since then 1996Right Inguinal Hernia Repair 2019 [facility] Dr Himanshu Sanchez 2019[place] teeth extraction left lower jaw Dentist Dr Jannet Soriano 2015 * Hospitalization/Major Diagno stic Procedure:?STOMACH PAINS IN HOSPITAL FOR COUPLE OF HOURS 2019 * Family History:?Father: manuel rojo.?Mother: .?2 brother(s) - healthy. 2 son(s) , 2 daughter(s) - healthy. .? Born in [facility] [address] [facility]. Parents and uncles migrated from [facility] in [place] where they were farmers. Got 16 acres of fam land alloted where wheat, corn and sugar cane . Father Tung Garcia is now 89 yrs old and has mild dementia and lives with his son in [place] and some time with middle son Melina Verdin in [facility]. Mother Miroslava Hickman in 2002 at age 76 . Has 6 siblings. 3 older sisters #1 Mel marylou 73 yr has DM Lives in [facility] Has 4 sons and 3 dtrs #2 Latifa Marylou 70yrHas CAD, DM 3 sons and 3 dtrs Lives in [facility] #3Anwar Marylou 68 yr with DM. 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 Lived in [place] and helped father farm till age 18 yr After matric went to [facility] to live with uncle Faith Lima. 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 Did not like the grafts and bribes and came to [facility] in 1989 with help of Katie Brizuela a doctor . He had got in 1986 Had a daughter Ale and a son Melina Frausto 6 months old when he left. 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 . 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 Brought his family in 1998. 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 * Social History:?Tobacco Use:?Tobacco Use/Smoking?Are you a?nonsmoker ?Additional Findings: Tobacco Non-User?Current non-smoker ?Tobacco use other than smoking?Are you an other tobacco user??No ???Drugs/Alcohol:?Alcohol Screen (Audit-C)?Did you have a drink containing alcohol in the past year??No ?Points?0 ?Interpretation?Negative ?Do you drink alcohol?: NONE. ???08/11/21 Marital HX: Got in 1986 . Had a son and dtr born in [place] He moved to [facility] in 1989 and brought his family here in [address]. [address] [facility] in Jan 1999 and then moved in [address] [place] [address] in [place] , neighbor of Dr Davy Rosario . Has 2 sons and 2 daughters #Ale Ruby 34 yr Got bachelors in psychology from [employer]. 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 He got at age 22 yr to 18 yr sierra leonean Jenifer Leonardo They have2 sons and a daughter and live half mile away. Omer 7 yr Twin [place]if[place] 7 yr, Peterr Mago 5 1/2yr. Going to [employer] in [place] [facility]. [address] #Sanju Ruby 21 yrs High School at [employer] 3rd year doing major in Computer science . 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 Personal Doesnt smoke or drink coffee or tea ACTIVITIES. 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 23696 Office Visit, Est Pt., Level 4. * Procedure Codes:? * Sign off status: Completed true * Provider:?Antony Mortensen MD Date:?2022 Generated for Crystal toledo/Lornezo/eTparkersmitting on:?04/13/2024 07:57 PM EST History and Physical Notes * [...] [place] in February. Daughter is organizing the [facility] Summer Camp with Benita 06/26/21 Came to the office Had 3 sessions with [facility] andthe pain/cramps in his legs has almost resolved Went to [facility] on 05/[address] [...] Also told to use Hibiclens shampoo from [employer] to prevent skin infections in the groin. [...] be on a 9 hour flight to [facility]. Wants to be better before that. [...] capped by Dr Jannet Soriano. Also saw insulation worker Dr Muhammad. Wants to see another insulation worker as he is retiring. Refer to Dr Coleman. in future . 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. Has FU with me on 03/05/21. He [...]
== END 2024-04-13 16:39 | disposition home or self-care (01) ==
PROVIDERS: PCP Internal Medicine; Visit Provider Registered Nurse Diabetes Educator
DX: E11.65 Type 2 diabetes mellitus with hyperglycemia (principal)

== ENCOUNTER → 2024-04-13 16:05 | Outpatient (BNVA) | payer OTHER, SELFPAY | PROVIDERS: PCP Internal Medicine; Visit Provider Registered Nurse Diabetes Educator | DX: E11.65 Type 2 diabetes mellitus with hyperglycemia (principal) | CPT/HCPCS: 99211 ==

== ENCOUNTER 2024-05-25 14:42 | Outpatient (AMB) | payer OTHER, SELFPAY ==
[2024-05-25 14:50] VITALS: BMI 21.1
--- NOTE | 2024-05-25 14:50 | A.OFFVIS_ITS ---
VS Expanded 05/25/24 14:50 06/09/24 11:58 Height 5 ft 7 in 5 ft 7 in Weight 134 lb 14.766 oz 135 lb BMI 21.1 21.1 Intake Visit Reasons: T2DM Allergies No Known Allergies Allergy (Verified 03/25/24 15:30) Nutrition Presentation Details: Pt presents for MNT for T2DM food frequency fruits: 3+ dairy : 1-2/d veg: daily fish 0-1/wk starches > 25 /d beverages: water/tea/juices physical activity: walking eoth/smoking --- BS Monitoring Most Recent Diabetes Results: Microalb/Creat Ratio TNP 12/05/21 Cholesterol 100 mg/dL 04/26/21 HDL Cholesterol 63 mg/dL 04/26/21 Triglycerides 23 mg/dL 04/26/21 Creatinine 0.94 mg/dL (0.5-1.4) 07/10/21 Blood Urea Nitrogen 21 mg/dL (9-16) H 07/10/21 Sodium 139 mmol/L (135-145) 07/10/21 Potassium 4.0 mmol/L (3.3-5.1) 07/10/21 Chloride 104 mmol/L (96-108) 07/10/21 Carbon Dioxide 28 mmol/L (22-29) 07/10/21 Calcium 9.6 mg/dL (8.4-10.2) 07/10/21 AST 16 U/L (5-37) 07/10/21 ALT 18 U/L (0-40) 07/10/21 Total Protein 6.8 g/dL (6.5-8.0) 07/10/21 Albumin 4.2 g/dL (3.5-5.0) 07/10/21 ATH-Hxxreeb-Yc.Jeor Equation Height: 5 ft 7 in Weight: 135 lb Resting Metabolic Rate: 1370.40 Calculated Activity Level: Moderate Activity Calories Needed to Maintain Weight: 2124.12 Diagnosis Nutrition problem #1: altered nutrition labs As related to (etiology) #1: diagnosis As evidenced by (sign/symptom) #1: elevated HgbA1c (9.2% on 06/04) [facility] Medical History (Updated 03/25/24 @ 16:30 by Elena Leonardo MD) HLD (hyperlipidemia) Needle phobia Vitamin D deficiency Cobalamin deficiency Diabetes type 2, uncontrolled Surgical History Hx of hernia repair Hx of right inguinal hernia repair History of back surgery Family History Father No problems noted. Mother Diabetes mellitus Social History Alcohol intake: never Assessment & Plan Assessment & Plan (1) Diabetes type 2, uncontrolled: Code(s): E11.65 - Type 2 diabetes mellitus with hyperglycemia Category: Medical Qualifiers: Glycemic state: with hyperglycemia Qualified Code(s): E11.65 - Type 2 diabetes mellitus with hyperglycemia Plan: Wt: 61 Kg ( 06/04 ) Est kcal needs as per MSJ: 2100 (40% carb, 30% protein/fat) Est fluid needs as per 25-30 ml/d: 1800 Est prot per day as per 1 g/kg bw: 60 Recommend fiber intake : 8-10 g per day and gradually increase to 25-28 g per day for women and 35-38 g for men or as tolerated Recommend sodium intake per day : less than 2000 mg Educated patient on: ( R = reviewed V = verbalizes understanding N/R = needs review N/A = not applicable * Food sources of carbohydrate, adequate serving sizes and its role in various health conditions: R * Differences between complex carbohydrates a simple carbohydrates, role of fiber in diet: R * Lean protein sources of foods: R * Differences between types of fats and role in diet (mono on saturated fat fatty acids, saturated fatty acids, trans fats): R V N/R * Food sources of sodium in salt and healthy modifications for heart health in kidney health: R V R/V * Vitamins and minerals: R V N/R * Healthy plate method concept: R V N/R * Physical activity: Benefits a precaution: R * Hypoglycemia protocol (rule of 15): R V N/R * Dietary prevention of Hyperglycemia: R Patient Instructions: Reduce on sugars (amount of sugars : brown/white/honey/molasses and sugar added in pastries/cookies/candies, sugar added to tea/coffee/juices , sodas) Watch portions of total carbohydrates, 60-80 g per meal , choosing fiber rich f oods and lean protein foods keep hydrated by having water with meals/snacks Coding Level of Care Code Nutr Indiv Intake (17679) Diagnoses Uncontrolled type 2 diabetes mellitus with hyperglycemia E11.65 Glycemic state: with hyperglycemia Time Spent (min) 30
--- OUTSIDE RECORDS SUMMARY | 2024-05-25 17:57 | XMS_ITS | Clinical Summary ---
Author Organization [facility] Address [address] [place] [address] Care Team Providers Care Spout Liner Helper Name Role Phone Unknown, Primary Care Provider [...] age to complete this topic Care Teams Spout Liner Helper Relationship Specialty Start Date End Date Unknown, PCP - General 10/26/20
[2024-06-09 11:58] VITALS: BMI 21.1
== END 2024-05-25 15:24 | disposition home or self-care (01) ==
LOC: HO.ENCR 14:42
PROVIDERS: PCP Internal Medicine; Visit Provider Dietitian, Registered
DX: E11.65 Type 2 diabetes mellitus with hyperglycemia (principal)

== ENCOUNTER → 2024-05-25 14:42 | Outpatient (BNVA) | payer OTHER, SELFPAY | PROVIDERS: PCP Internal Medicine; Visit Provider Dietitian, Registered | DX: E11.65 Type 2 diabetes mellitus with hyperglycemia (principal); Z71.3 Dietary counseling and surveillance | CPT/HCPCS: 97802 ==

== ENCOUNTER 2024-07-07 15:05 | Outpatient (AMB) | payer OTHER, SELFPAY ==
--- NOTE | 2024-07-07 15:17 | MHC.OFFVIS ---
Vital Signs 07/07/24 15:20 Height 5 ft 7 in Weight 136 lb 7.458 oz BMI 21.4 BP 96/56 L Blood Pressure Location Lt brachial Position Sitting Pulse 72 Pulse Source Pulse Oximeter Pulse Oximetry (%) 96 Oxygen Delivery Method Room Air Intake Visit Reasons: DM Intake Note: Patient present today for Type 2 Diabetes Mellitus Last Diabetic eye exam: 11/2023 Last Podiatry Visit: Doesn't have one Random Glucose: 119 mg/dl HgA1C: 7.1% Service Officer Required: No Accompanied by: Self / Same As Patient Allergies No Known Allergies Allergy (Verified 07/07/24 15:22) Medication List - Last Reconciled 07/07/24 by Elena Leonardo MD aspirin 81 mg PO DAILY blood-glucose sensor ([place] [employer] CommunicationStyle Yulia 3 Plus Sensor device) As directed every 15 days E11.65 Type 2 DM with hyperglycemia F40.231 Needle phobia cyanocobalamin (vitamin B-12) 5,000 mcg PO .weekly empagliflozin (Jardiance) 12.5 mg PO QAM flash glucose sensor (FreeStyle Yulia 14 Day Sensor kit) 1 ea topical .Every 14 days 28 days metformin 1,000 mg PO BID 30 days pantoprazole 40 mg PO DAILY rosuvastatin mg PO DAILY semaglutide (Ozempic) 0.5 mg (0.736 mL) subcut QWEEK triamcinolone acetonide 0.1% 1 appl topical DAILY 10 days HPI Comments Details: 63-year-old male here today for initial evaluation of type 2 diabetes mellitus. Type 2 diabetes mellitus diagnosed in 1999. Was seen at our clinic last in 2020, then following [facility] PCP A1c 03/25/2024 POC: 9% Over the past year his diabetes mellitus control has worsened and A1c was 8.5% in summer of 2023. Prior therapy: Januvia stopped mid Feb 2024 Sitagliptin Used to be on insulin lantus some 3 years ago ,was stopped with improved control in 2020ish, used to be on it 1.5 hours Current regimen: Metformin 1000 mg BID Jardiance 12.5 mg daily reduce from 25 mg daily mid Feb 2024 Ozempic 0.5 mg weekly (Ozempic was started started mid Feb 2024, and dose increased last appointment 03/25/2024) Saw CDE 04/13/2024 Saw derrick worker 05/25/2024 Denies any symptoms of hyperglycemia including polyphagia, polyuria, polydipsia. Denies any hypoglycemic symptoms. vitamin B 12 5000 mcg once a week Freestyle Yulia report downloaded from June 16 to 07/07/2024 Time CGM active 19% Average glucose 158 mg/dL Glucose variability 22.7% Within target range 78% High 21% Very high 1% Low 0% Very low 0% Interpretation: He is on the Yulia 3+, not clear why he does not have readings on a lot of the days, seems to have postprandial hyperglycemia. Random Glucose: 119 mg/dl HgA1C: 7.1% Vaccines: flu shot [id number] done Complications Eye exam: Last eye exam was November 2023, no retinopathy Neuropathy: reports numbness, tingling in feet Kidney disease: Gfr Feb Macrovascular complications: No history of macrovascular complications. Statin:rosuvastatin 5 mg daily ONIEL/ARB: none Exercise: walks not much recently Diet control: want s to see derrick worker He has never had any hospitalizations for hyperglycemia/hypoglycemia. Physical exam General: sitting comfortably in no acute distress HEENT: normocephalic/atraumatic, Neck: supple Cardiac: normal heart sounds Pulm: normal breath sounds B/L, no added breath sounds Abd: not distended, no tenderness Extremities: no edema, no signs of myxedema Neuro: AAO x3, Speech: normal, no facial droop, moving all 4 extremities Skin: Some hyperpigmentation noted on his calves, ecchymosis also noted Foot exam: Last in March 2024 intact sensation to monofilament, intact pulses, intact vibration Laboratory Tests 04/26/21 12/05/21 03/25/24 07:36 07:58 15:34 Glucose (Clinic) 144 H Hemoglobin A1c % 7.9 Triglycerides 23 Cholesterol 100 LDL Cholesterol, Calc 33 HDL Cholesterol 63 D TSH 1.61 Urine Creatinine 124.37 Urine Microalbumin < 5.0 [facility] Medical History (Updated 03/25/24 @ 16:30 by Elena Leonardo MD) HLD (hyperlipidemia) Needle phobia Vitamin D deficiency Cobalamin deficiency Diabetes type 2, uncontrolled Surgical History Hx of hernia repair Hx of right inguinal hernia repair History of back surgery Family History Father No problems noted. Mother Diabetes mellitus Social History Alcohol intake: never Physical Exam Vital Signs: Last Vital Signs Pulse 72 07/07/24 15:20 BP 96/56 L 07/07/24 15:20 Pulse Ox 96 07/07/24 15:20 Oxygen Delivery Method Room Air 07/07/24 15:20 BMI result Body Mass Index 21.4 Results AMB Hemoglobin A1c AMB Hemoglobin A1c 7.1 % Last Edit by WILTON Stover on 07/07/24 15:35 Results Reviewed Results Reviewed: Laboratory Last Values Glucose (Clinic) 119 mg/dL (60-115) H 07/07/24 15:24 Assessment & Plan Assessment & Plan (1) Diabetes type 2, uncontrolled: Code(s): E11.65 - Type 2 diabetes mellitus with hyperglycemia Category: Medical Qualifiers: Glycemic state: with hyperglycemia Qualified Code(s): E11.65 - Type 2 diabetes mellitus with hyperglycemia Plan: 63-year-old male with history of type 2 diabetes mellitus with complications of neuropathy, who was diagnosed in 1999, with no long-term insulin use, whose A1c is now improved to 7.1% 06/29/2024 down from at 9% earlier this year. He is well-controlled on his current regimen, does still have some postprandial hyperglycemia, however he is not willing to increase his Ozempic as he is concerned about his weight loss. Today I discussed in detail importance of increasing his protein intake and doing resistance training to prevent muscle loss with GLP 1 agonist. He is currently on Jardiance 12.5 mg daily but due to insurance coverage, he will be switching to Farxiga, not clear about dosage, prescribed by his PCP, in 2 weeks. We also spent a large part of the visit today, focusing on diabetes complications and complications of hyperglycemia. Discussed importance of controlling blood sugars to avoid microvascular and macrovascular complications. Plan: -continue Ozempic 0.5 mg weekly -continue Jardiance 12.5 mg daily , update us about dosage of Farxiga once you switch -continue 1000 mg metformin b.i.d. -continue vitamin B12 5000 mcg once a week -foot exam done March 2024 was unremarkable -up-to-date with Ophthalmology, no history of retinopathy -labs for urine microalbumin, lipid panel, CMP, CBC ordered to be done prior to follow up in 3 months (2) Needle phobia: Code(s): F40.298 - Other specified phobia Category: Medical Plan: Patient has needle phobia, has a uncontrolled hyperglycemia, has freestyle Yulia 3+ for monitoring (3) HLD (hyperlipidemia): Code(s): E78.5 - Hyperlipidemia, unspecified Category: Medical Qualifiers: Hyperlipidemia type: mixed hyperlipidemia Qualified Code(s): E78.2 - Mixed hyperlipidemia Plan: No recent lipid panel in the chart, patient says he had this done recently. Continue rosuvastatin 5 mg daily at this point he needs a repeat lipid panel Plan: -continue rosuvastatin 5 mg daily -ordered lipid panel to be done prior to follow up in 3 months Plan I spent 30 minutes in reviewing the record, seeing the patient and documenting in the medical record. Orders: Orders AMB Hemoglobin A1c Today E11.65 - Type 2 diabetes mellitus with hyperglycemia, Z13.9 - Encounter for screening, unspecified Complete Blood Count no Diff 2 Months E11.65 - Type 2 diabetes mellitus with hyperglycemia, E78.2 - Mixed hyperlipidemia Lipid Panel 2 Months E11.65 - Type 2 diabetes mellitus with hyperglycemia, E78.2 - Mixed hyperlipidemia Microalbumin, Random (w Creat) 2 Months E11.65 - Type 2 diabetes mellitus with hyperglycemia, E78.2 - Mixed hyperlipidemia Vitamin B12 2 Months E11.65 - Type 2 diabetes mellitus with hyperglycemia, E78.2 - Mixed hyperlipidemia Comprehensive Met. Panel 2 Months E11.65 - Type 2 diabetes mellitus with hyperglycemia, E78.2 - Mixed hyperlipidemia Patient Instructions: Do fasting blood work and urine prior to next visit in 3 months Continue current meds Please bring farxiga bottle to next visit for us to write down the dose Coding Level of Care Code Est Pt Level 4 (13601) Complex EM visit Add On G2211 Diagnoses Uncontrolled type 2 diabetes mellitus with hyperglycemia E11.65 Glycemic state: with hyperglycemia Needle phobia F40.298 Mixed hyperlipidemia E78.2 Hyperlipidemia type: mixed hyperlipidemia Time Spent (min) 30
[2024-07-07 15:20] VITALS: BP 96/56; PULSE 72; O2SAT 96; BMI 21.4
[2024-07-07 15:28] LABS: Glucose, Whole Blood 119 mg/dL (60-115)
--- OUTSIDE RECORDS SUMMARY | 2024-07-07 15:48 | XMS_ITS | Clinical Summary ---
Author Organization [facility] Address [address] [place] [address] Care Team Providers Care Metallurgical Lab Technician Name Role Phone Unknown, Primary Care [...] age to complete this topic Care Teams Metallurgical Lab Technician Relationship Specialty Start Date End Date Unknown, PCP - General 10/26/20
== END 2024-07-07 15:47 | disposition home or self-care (01) ==
LOC: HO.ENCR 15:05
PROVIDERS: PCP Internal Medicine; Visit Provider Student in an Organized Health Care Education/Training Program
DX: E11.65 Type 2 diabetes mellitus with hyperglycemia (principal); F40.298 Other specified phobia; E78.2 Mixed hyperlipidemia; Z13.9 Encounter for screening, unspecified
CPT/HCPCS: 99214

== ENCOUNTER → 2024-07-07 15:05 | Outpatient (BNVA) | payer OTHER, SELFPAY | PROVIDERS: PCP Internal Medicine; Visit Provider Student in an Organized Health Care Education/Training Program | DX: E11.65 Type 2 diabetes mellitus with hyperglycemia (principal); E78.2 Mixed hyperlipidemia; Z79.4 Long term (current) use of insulin; Z79.84 Long term (current) use of oral hypoglycemic drugs; E55.9 Vitamin D deficiency, unspecified; E64.8 Sequelae of other nutritional deficiencies; F40.231 Fear of injections and transfusions | CPT/HCPCS: 82947; 83036 ==

== ENCOUNTER 2024-10-06 06:31 | Outpatient (REF) | payer OTHER, SELFPAY ==
--- OUTSIDE RECORDS SUMMARY | 2024-10-06 06:37 | XMS_ITS | Clinical Summary ---
Author Organization [facility] Address [address] [place] [address] Care Team Providers Care Ciaio Lumite Injector Name Role Phone Unknown, Primary Care Provider [...] (1 of 2) 2010 Influenza Vaccine (#1) 2024 RSV Adult > 60+ Yrs or Pregn [...] age to complete this topic Care Teams Ciaio Lumite Injector Relationship Specialty Start Date End Date Unknown, PCP - General 10/26/20
[2024-10-06 07:40] LABS: Hematocrit 43.9 % (42.0-52.0); Hemoglobin 14.0 g/dl (14.0-18.0); Mean Corpuscular HGB Conc 31.9 g/dl (31.0-36.0); Mean Corpuscular Hemoglobin 26.5 pg (27.0-33.0); Mean Corpuscular Volume 83.0 fL (80.0-98.0); NRBC Abs Auto 0.000 X10*3/uL (0.0-0.012); NRBC Pct Auto 0.0 /100WBC (0.0-0.2); Platelet Count 161 X10*3/uL (160-400); Red Blood Count 5.29 X10*6/uL (4.60-5.80); White Blood Count 4.2 X10*3/uL (4.8-10.8)
[2024-10-06 08:23] LABS: Alanine Aminotransferase 22 U/L (0-40); Albumin Level 4.4 g/dL (3.5-5.0); Alkaline Phosphatase 48 U/L (39-117); Anion Gap 11 (12-20); Aspartate Amino Transferase 22 U/L (5-37); Blood Urea Nitrogen 21 mg/dL (9-16); Calcium 9.2 mg/dL (8.4-10.2); Carbon Dioxide 29 mmol/L (22-29); Chloride 104 mmol/L (96-108); Cholesterol 93 mg/dL (<200); Estimated Glomerular Filt Rate > 60; HDL Cholesterol 57 mg/dL (>40); Potassium 4.0 mmol/L (3.3-5.1); Sodium 140 mmol/L (135-145); Total Protein 6.5 g/dL (6.5-8.0); Triglycerides 22 mg/dL (<150)
[2024-10-06 08:46] LABS: Vitamin B12 248 pg/mL (200-900)
== END 2024-10-06 06:32 | disposition home or self-care (01) ==
LOC: HO.LAB 06:31
PROVIDERS: PCP Internal Medicine; Visit Provider Student in an Organized Health Care Education/Training Program
DX: E11.65 Type 2 diabetes mellitus with hyperglycemia (principal); E78.2 Mixed hyperlipidemia
CPT/HCPCS: 36415; 80053; 80061; 82043; 82570; 82607; 85027

== ENCOUNTER 2024-10-12 15:36 | Outpatient (AMB) | payer OTHER, SELFPAY ==
[2024-10-12 15:48] VITALS: BP 100/62; PULSE 68; O2SAT 97; BMI 21.6
--- NOTE | 2024-10-12 15:48 | A.OFFVIS_ITS ---
Vital Signs 3 10/12/24 15:48 Height 5 ft 7 in Weight 137 lb 12.623 oz BMI 21.6 BP 100/62 Blood Pressure Location Rt brachial Position Sitting Pulse 68 Pulse Source Pulse Oximeter Pulse Oximetry (%) 97 Oxygen Delivery Method Room Air Intake Visit Reasons: DM Intake Note: Patient present today for Type 2 Diabetes Mellitus Last Diabetic eye exam: Patient has upcoming appt in 11/2024 Last Podiatry Visit: Doesn't have one but would like a referral Random Glucose: 149 mg/dl HgA1C: 7.7% Assessment Nurse Required: No Accompanied by: Self / Same As Patient Allergies No Known Allergies Allergy (Verified 10/12/24 15:55) Medication List - Last Reconciled 10/12/24 by Elena Leonardo MD aspirin 81 mg PO DAILY blood-glucose sensor (FreeStyle Yulia 3 Plus Sensor device) As directed every 15 days E11.65 Type 2 DM with hyperglycemia F40.231 Needle phobia cyanocobalamin (vitamin B-12) 5,000 mcg PO .weekly dapagliflozin propanediol (Farxiga) 10 mg PO DAILY flash glucose sensor (FreeStyle Yulia 14 Day Sensor kit) 1 ea topical .Every 14 days 28 days metformin 1,000 mg PO BID 30 days pantoprazole 40 mg PO DAILY rosuvastatin mg PO DAILY semaglutide (Ozempic) 0.5 mg (0.736 mL) subcut QWEEK triamcinolone acetonide 0.1% 1 appl topical DAILY 10 days HPI Comments Details: 63-year-old male here today for follow up of type 2 diabetes mellitus. Type 2 diabetes mellitus diagnosed in 1999. Was seen at our clinic last in 2020, then following wiht PCP A1c HgA1C: 7.7% 10/12/24 a1c 7.1 % 07/0403/25/2024 POC: 9% Random Glucose: 149 mg/dl Prior therapy: Januvia stopped mid Feb 2024 Sitagliptin Used to be on insulin lantus some 3 years ago ,was stopped with improved control in 2020ish, used to be on it 1.5 hours JArdiance 12.5 mg chnaged to farxiga 10 mg daily August 2024 Current regimen: Metformin 1000 mg BID Farxiga 10 mg daily Ozempic 0.5 mg weekly (Ozempic was started started mid Feb 2024, and dose increased last appointment 03/25/2024) [place] Yulia 3 downloaded from October 01 to 10/12/2024 Average glucose 165 mg/dL G [place] 7.3% Within target range 70% High 26% Very high 4% Low 0% He is still having postprandial hyperglycemia Saw CDE 04/13/2024 Saw bulb brander 05/25/2024 Denies any symptoms of hyperglycemia including polyphagia, polyuria, polydipsia. Denies any hypoglycemic symptoms. vitamin B 12 5000 mcg once a week Random Glucose: 119 mg/dl HgA1C: 7.1% Vaccines: flu shot [id number] done Complications Eye exam: Last eye exam was November 2023, no retinopathy Neuropathy: reports numbness, tingling in feet Kidney disease: Gfr Feb Macrovascular complications: No history of macrovascular complications. Statin:rosuvastatin 5 mg daily ONIEL/ARB: none Exercise: walks not much recently Diet control: want s to see bulb brander He has never had any hospitalizations for hyperglycemia/hypoglycemia. Physical exam General: sitting comfortably in no acute distress HEENT: normocephalic/atraumatic, Neck: supple Cardiac: normal heart sounds Pulm: normal breath sounds B/L, no added breath sounds Abd: not distended, no tenderness Extremities: no edema, no signs of myxedema Neuro: AAO x3, Speech: normal, no facial droop, moving all 4 extremities Skin: Some hyperpigmentation noted on his calves, ecchymosis also noted Foot exam: Last in March 2024 intact sensation to monofilament, intact pulses, intact vibration Laboratory Tests 04/26/21 12/05/21 03/25/24 07:36 07:58 15:34 Glucose (Clinic) 144 H Hemoglobin A1c % 7.9 Triglycerides 23 Cholesterol 100 LDL Cholesterol, Calc 33 HDL Cholesterol 63 D TSH 1.61 Urine Creatinine 124.37 Urine Microalbumin < 5.0 Laboratory Tests 07/07/24 10/06/24 10/06/24 15:34 06:58 07:02 Hgb 14.0 Hct 43.9 Plt Count 161 Sodium 140 Creatinine 0.99 Estimated GFR > 60 Hgb A1c (Clinic) 7.1 H AST 22 ALT 22 Albumin 4.4 Triglycerides 22 Cholesterol 93 LDL Cholesterol, Calc 32 Vitamin B12 248 Urine Creatinine 132.89 Urine Microalbumin < 5.0 10/12/24 16:01 Hgb Hct Plt Count Sodium Creatinine Estimated GFR Hgb A1c (Clinic) 7.7 H AST ALT Albumin Triglycerides Cholesterol LDL Cholesterol, Calc Vitamin B12 Urine Creatinine Urine Microalbumin [facility] Medical History (Updated 03/25/24 @ 16:30 by Elena Leonardo MD) HLD (hyperlipidemia) Needle phobia Vitamin D deficiency Cobalamin deficiency Diabetes type 2, uncontrolled Surgical History Hx of hernia repair Hx of right inguinal hernia repair History of back surgery Family History Father No problems noted. Mother Diabetes mellitus Social History Alcohol intake: never Physical Exam Vital Signs: Last Vital Signs Pulse 68 10/12/24 15:48 BP 100/62 10/12/24 15:48 Pulse Ox 97 10/12/24 15:48 Oxygen Delivery Method Room Air 10/12/24 15:48 BMI result Body Mass Index 21.6 Office Procedures Glucose Monitoring Details Details: See [facility] [address] - Glucose monitoring, continuous-physician I&R Procedure code (CPT) selection complete Results AMB Hemoglobin A1c 2 AMB Hemoglobin A1c 7.7 % Last Edit by WILTON Stover on 10/12/24 16:09 Results Reviewed Results Reviewed: Laboratory Last Values Glucose (Clinic) 149 mg/dL (60-115) H 10/12/24 15:59 Hgb A1c (Clinic) 7.7 % (4.0-6.0) H 10/12/24 16:01 Assessment & Plan Assessment & Plan (1) Diabetes type 2, uncontrolled: Code(s): E11.65 - Type 2 diabetes mellitus with hyperglycemia Category: Medical Qualifiers: Glycemic state: with hyperglycemia Qualified Code(s): E11.65 - Type 2 diabetes mellitus with hyperglycemia Plan: 63-year-old male with history of type 2 diabetes mellitus with complications of neuropathy, who was diagnosed in 1999, with no long-term insulin use, whose A1c is at 7.7% POC 10/12/24 up from 7.1% 06/29/2024 down from at 9% earlier in 2024 He is well-controlled on his current regimen, does still have some postprandial hyperglycemia, however he is not willing to increase his Ozempic as he is concerned about his weight loss. Today I discussed in detail importance of increasing his protein intake and doing resistance training to prevent muscle loss with GLP 1 agonist. Plan: -continue Ozempic 0.5 mg weekly -continue Jardiance 12.5 mg daily , update us about dosage of Farxiga once you switch -continue 1000 mg metformin b.i.d. -continue vitamin B12 5000 mcg once a week -foot exam done March 2024 was unremarkable, podiatry referral placed -up-to-date with Ophthalmology, no history of retinopathy (2) Needle phobia: Code(s): F40.298 - Other specified phobia Category: Medical Plan: Patient has needle phobia, has a uncontrolled hyperglycemia, has [place] Yulia 3+ for monitoring (3) HLD (hyperlipidemia): Code(s): E78.5 - Hyperlipidemia, unspecified Category: Medical Qualifiers: Hyperlipidemia type: mixed hyperlipidemia Qualified Code(s): E78.2 - Mixed hyperlipidemia Plan: LDL within goal of less than 70 mg/dL from September 2024 Continue rosuvastatin 5 mg Plan: -continue rosuvastatin 5 mg daily Plan I spent 30 minutes in reviewing the record, seeing the patient and documenting in the medical record. Orders: Orders 2 AMB Hemoglobin A1c Today E11.65 - Type 2 diabetes mellitus with hyperglycemia, Z13.9 - Encounter for screening, unspecified AMB Glucose Monitoring Today E11.65 - Type 2 diabetes mellitus with hyperglycemia Referrals 2 Podiatry Referral E11.65 - Type 2 diabetes mellitus with hyperglycemia Coding Level of Care Code Est Pt Level 4 (75574) Diagnoses Uncontrolled type 2 diabetes mellitus with hyperglycemia E11.65 Glycemic state: with hyperglycemia Needle phobia F40.298 Mixed hyperlipidemia E78.2 Hyperlipidemia type: mixed hyperlipidemia CPT Codes Details - CPT: 22119 - Glucose monitoring, continuous-physician I&R ([id number]) Time Spent (min) 30
[2024-10-12 16:03] LABS: Glucose, Whole Blood 149 mg/dL (60-115)
--- OUTSIDE RECORDS SUMMARY | 2024-10-12 16:35 | XMS_ITS | Clinical Summary ---
Author Organization [facility] Address [address] [place] [address] Care Team Providers Care Cow Trimmer Name Role Phone Unknown, Primary Care Provider [...] age to complete this topic Care Teams Cow Trimmer Relationship Specialty Start Date End Date Unknown, PCP - General 10/26/20
== END 2024-10-12 16:38 | disposition home or self-care (01) ==
LOC: HO.ENCR 15:36
PROVIDERS: PCP Internal Medicine; Visit Provider Student in an Organized Health Care Education/Training Program
DX: E11.65 Type 2 diabetes mellitus with hyperglycemia (principal); F40.298 Other specified phobia; E78.2 Mixed hyperlipidemia; Z13.9 Encounter for screening, unspecified
CPT/HCPCS: 95251; 99214

== ENCOUNTER → 2024-10-12 15:36 | Outpatient (BNVA) | payer OTHER, SELFPAY | PROVIDERS: PCP Internal Medicine; Visit Provider Student in an Organized Health Care Education/Training Program | DX: E11.65 Type 2 diabetes mellitus with hyperglycemia (principal) | CPT/HCPCS: 82947; 83036 ==

== ENCOUNTER 2024-11-03 15:05 | Outpatient (AMB) | payer OTHER, SELFPAY ==
[2024-11-03 15:21] VITALS: BMI 21.1
--- NOTE | 2024-11-03 15:21 | MHC.OFFVIS ---
Vital Signs 11/03/24 15:21 Height 5 ft 7 in Weight 135 lb BMI 21.1 Intake Visit Reasons: Type 2 diabetes mellitus with hyperglycemia Intake Note: Lupe is a 63 year old male who presents to the office today as a new patient for a diabetic foot exam. He was referred by his Sewing Machines Salesperson Dr. Leonardo for Type 2 diabetes mellitus with hyperglycemia. He sates his current glucose is 131 and last A1c was 7.8. He states he noticed bilateral numbness and tingling in his feet in the past but is not experiencing this at this time. Patient reports no injuries to his foot and he is not an amputee. Allergies No Known Allergies Allergy (Verified 11/03/24 15:23) HPI HPI Type 2 diabetes mellitus with hyperglycemia: Details: The patient is a 64-year-old male with history of type 2 diabetes mellitus and right bundle branch block who presents today for annual diabetic foot evaluation. The patient has a history of diabetes mellitus, with a recent HbA1c level of 7.8. He states he was recently started on Ozempic to help glycemic control.. He reports a history of syncope, having fainted while he was abroad in [place]. The patient also has a right bundle branch block, which has been evaluated by his pattern changer and repairer. He is active, engaging in activities such as ping pong and gardening, and has experienced a single episode of numbness and burning in his feet after being on a long flight, however he has not had new episodes since then. He also denies any history of wounds or infections to his feet. He denies numbness burning tingling to his feet. Denies any feelings of cold pain to his feet. He denies symptoms of claudication such as pain or cramping to his legs. Medical History: - Diabetes Mellitus - Right Bundle Branch Block - History of Syncope Medications: - Ozempic for diabetes management Social History: - Engages in regular physical activity, including ping pong and gardening. [facility] Medical History (Updated 03/25/24 @ 16:30 by Elena Leonardo MD) HLD (hyperlipidemia) Needle phobia Vitamin D deficiency Cobalamin deficiency Diabetes type 2, uncontrolled Surgical History Hx of hernia repair Hx of right inguinal hernia repair History of back surgery Family History Father No problems noted. Mother Diabetes mellitus Social History Alcohol intake: never Review of Systems Const All systems reviewed & are unremarkable except as noted in HPI and below Physical Exam Vital Signs: BMI result Body Mass Index 21.1 Extrem Other: *Bilateral Lower Extremity Focused Diabetic Foot Exam Vascular: DP/PT 2/4, CFT<3s to digits, TG warm to cool, no pedal edema, pedal hair present Derm: Skin: No open lesions, ulcerations, or calluses. Interdigital spaces: Clear, no maceration or fungal infection. Nails: No onychomycosis, paronychia, or ingrown nails. Neuro: [place]-jannette monofilament (10g) test 10/10 intact to right foot, 9/10 intact to left foot, decreased to left 3rd toe. Msk: Deformities: No evidence of hammertoes, bunions, Charcot changes, or other structural abnormalities. Muscle strength: 5/5 in all muscle groups. Gait: Normal, no antalgic or steppage gait observed. Footwear Assessment: Shoes inspected; appropriate fit, no excessive wear, or foreign objects noted. Results Reviewed Results Reviewed: Laboratory Tests 10/12/24 16:01 Hgb A1c (Clinic) 7.7 H Assessment & Plan Assessment & Plan (1) Diabetes type 2, uncontrolled: Code(s): E11.65 - Type 2 diabetes mellitus with hyperglycemia Category: Medical Qualifiers: Glycemic state: with hyperglycemia Qualified Code(s): E11.65 - Type 2 diabetes mellitus with hyperglycemia Plan: Risk Stratification: No current ulceration, infection, or pre-ulcerative lesion. No loss of protective sensation or peripheral arterial disease. No plans for further testing/referrals for non-invasive vascular studies. Patient is at low risk for diabetic foot complications at this time. Recommendations: Continue routine foot care and daily self-inspection. Recommend moisturizing daily. Recommend supportive proper fitting shoe-wear. The patient may require diabetic shoes in the future. Reinforced diabetic foot education and risks from peripheral neuropathy. Follow up in 1 year for annual diabetic foot evaluation. Coding Level of Care Code New Pt Level 4 (08230) Diagnoses Uncontrolled type 2 diabetes mellitus with hyperglycemia E11.65 Glycemic state: with hyperglycemia Time Spent (min) 30
--- OUTSIDE RECORDS SUMMARY | 2024-11-03 17:35 | XMS_ITS | Clinical Summary ---
Author Organization [facility] Address [address] [place] [address] Care Team Providers Care Instructor Physical Name Role Phone Unknown, Primary Care Provider [...] of 2) 2010 Influenza Vaccine (#1) 2024 Pneumococcal Vaccine (1 of 1 - PCV) 2025 RSV Adult > 60+ Yrs or Pregn [...] age to complete this topic Care Teams Instructor Physical Relationship Specialty Start Date End Date Unknown, PCP - General 10/26/20
== END 2024-11-03 15:52 | disposition home or self-care (01) ==
LOC: HO.HPODS 15:06
PROVIDERS: PCP Internal Medicine; Visit Provider Student in an Organized Health Care Education/Training Program
DX: E11.65 Type 2 diabetes mellitus with hyperglycemia (principal)
CPT/HCPCS: 99203

== ENCOUNTER 2024-12-29 14:07 | Outpatient (AMB) | payer OTHER, SELFPAY ==
--- NOTE | 2024-12-29 14:11 | A.OFFVIS_ITS ---
Vital Signs 3 12/29/24 14:12 Height 5 ft 7 in Weight 139 lb 1.787 oz BMI 21.8 BP 86/52 L Blood Pressure Location Rt brachial Position Sitting Pulse 76 Pulse Source Pulse Oximeter Pulse Oximetry (%) 98 Oxygen Delivery Method Room Air Intake Visit Reasons: T2DM Intake Note: Patient presents today for a follow-up on Type 2 Diabetes Mellitus: Last Diabetic eye exam: Patient has upcoming appt in 11/2024??? 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 Last seen by Dr. Leonardo on 10/12/2024. This is my 1st time seeing this patient. Type 2 diabetes mellitus diagnosed in 1999. Prior therapy: Januvia stopped mid Feb 2024 Sitagliptin Used to be on insulin lantus some 3 years ago ,was stopped with improved control in 2020ish, used to be on it 1.5 hours JArdiance 12.5 mg chnaged to farxiga 10 mg daily August 2024 Current regimen: Metformin 1000 mg BID Farxiga 5 mg daily Ozempic 0.5 mg weekly (Ozempic was started started mid Feb 2024, and dose increased last appointment 03/25/2024) Saw CDE 04/13/2024 Saw employee benefits director 05/25/2024 Denies any symptoms of hyperglycemia including polyphagia, polyuria, polydipsia. Denies any hypoglycemic symptoms. vitamin B 12 5000 mcg once a week Vaccines: flu shot [id number] done Complications Eye exam: Last eye exam was November 2023, no retinopathy Neuropathy: reports numbness, tingling in feet Kidney disease: Gfr Feb Macrovascular complications: No history of macrovascular complications. Statin:rosuvastatin 5 mg daily ONIEL/ARB: none Exercise: walks not much recently Diet control: want s to see employee benefits director He has never had any hospitalizations for hyperglycemia/hypoglycemia. CGM data: Interpretation: Overall reasonable control. Does have postprandial hyperglycemia especially after dinner Interval history: Currently taking Metformin 1000 mg twice daily, Januvia, Farxiga (though there is confusion over the dosage, possibly 5 mg instead of 10 mg), and Ozempic 0.5 mg weekly. No episodes of hypoglycemia reported. Reports constipation as a side effect of Ozempic. Exercises include playing [employer] pong and occasional home workouts. The patient has lost weight, which seems to be a concern given Ozempic effect on weight. Physical exam General: Well appearing. NAD. CV: RRR, no murmur. No edema. Resp:Lungs clear to auscultation bilaterally Abdomen: Soft, nontender. nondistended Extremities/Neuro: No weakness or tremor of outstretched hands Laboratory Tests 10/06/24 10/06/24 10/12/24 06:58 07:02 16:01 BUN 21 H Creatinine 0.99 Estimated GFR > 60 Glucose (Clinic) Hgb A1c (Clinic) 7.7 H AST 22 ALT 22 Alkaline Phosphatase 48 Total Protein 6.5 Albumin 4.4 Triglycerides 22 Cholesterol 93 LDL Cholesterol, Calc 32 HDL Cholesterol 57 Urine Creatinine 132.89 Urine Microalbumin < 5.0 Microalb/Creat Ratio TNP 12/29/24 14:18 BUN Creatinine Estimated GFR Glucose (Clinic) 219 H Hgb A1c (Clinic) AST ALT Alkaline Phosphatase Total Protein Albumin Triglycerides Cholesterol LDL Cholesterol, Calc HDL Cholesterol Urine Creatinine Urine Microalbumin Microalb/Creat Ratio [facility] Medical History (Updated 03/25/24 @ 16:30 by Elena Leonardo MD) HLD (hyperlipidemia) Needle phobia Vitamin D deficiency Cobalamin deficiency Diabetes type 2, uncontrolled Surgical History Hx of hernia repair Hx of right inguinal hernia repair History of back surgery Family History Father No problems noted. Mother Diabetes mellitus Social History Alcohol intake: never Physical Exam Vital Signs: Last Vital Signs Pulse 76 12/29/24 14:12 BP 86/52 L 12/29/24 14:12 Pulse Ox 98 12/29/24 14:12 Oxygen Delivery Method Room Air 12/29/24 14:12 BMI result Body Mass Index 21.8 Results Reviewed Results Reviewed: Laboratory Last Values Glucose (Clinic) 219 mg/dL (60-115) H 12/29/24 14:18 Assessment & Plan Assessment & Plan (1) Diabetes type 2, uncontrolled: Code(s): E11.65 - Type 2 diabetes mellitus with hyperglycemia Category: Medical Qualifiers: Glycemic state: with hyperglycemia Qualified Code(s): E11.65 - Type 2 diabetes mellitus with hyperglycemia Plan: 63-year-old male with history of type 2 diabetes mellitus with complications of neuropathy, who was diagnosed in 1999, with no long-term insulin use, whose A1c is at 7.7% POC 10/12/24 up from 7.1% 06/29/2024 down from at 9% earlier in 2024 He is well-controlled on his current regimen, does still have some postprandial hyperglycemia, however he is not willing to increase his Ozempic as he is concerned about his weight loss. Today I discussed in detail importance of increasing his protein intake and doing resistance training to prevent muscle loss with GLP 1 agonist. We discussed increasing Farxiga to 10 mg, to which he agreed to. Plan: -continue Ozempic 0.5 mg weekly -Increase Farxiga 10 mg daily -continue 1000 mg metformin b.i.d. -continue vitamin B12 5000 mcg once a week -foot exam done March 2024 was unremarkable -up-to-date with Ophthalmology, no history of retinopathy (2) Needle phobia: Code(s): F40.298 - Other specified phobia Category: Medical Plan: Patient has needle phobia, has a uncontrolled hyperglycemia, has freestyle Yulia 3+ for monitoring (3) HLD (hyperlipidemia): Code(s): E78.5 - Hyperlipidemia, unspecified Category: Medical Qualifiers: Hyperlipidemia type: mixed hyperlipidemia Qualified Code(s): E78.2 - Mixed hyperlipidemia Plan: LDL within goal of less than 70 mg/dL from September 2024 Continue rosuvastatin 5 mg Plan: -continue rosuvastatin 5 mg daily Plan I spent 30 minutes in reviewing the record, seeing the patient and documenting in the medical record. Orders: Orders 2 AMB Glucose Monitoring Today E11.65 - Type 2 diabetes mellitus with hyperglycemia Basic Metabolic Panel Today E11.65 - Type 2 diabetes mellitus with hyperglycemia Hemoglobin A1c Today E11.65 - Type 2 diabetes mellitus with hyperglycemia Medications: New 2 dapagliflozin propanediol (Farxiga) 10 mg PO DAILY 30 tabs 3RF E11.65 - Type 2 diabetes mellitus with hyperglycemia Coding Level of Care Code Est Pt Level 4 (54576) Diagnoses Uncontrolled type 2 diabetes mellitus with hyperglycemia E11.65 Glycemic state: with hyperglycemia Needle phobia F40.298 Mixed hyperlipidemia E78.2 Hyperlipidemia type: mixed hyperlipidemia
[2024-12-29 14:12] VITALS: BP 86/52; PULSE 76; O2SAT 98; BMI 21.8
[2024-12-29 14:22] LABS: Glucose, Whole Blood 219 mg/dL (60-115)
--- OUTSIDE RECORDS SUMMARY | 2024-12-30 02:31 | XMS_ITS | Clinical Summary ---
Author Organization [facility] Address [address] [place] [address] Care Team Providers Care Freight Solicitor Name Role Phone Unknown, Primary Care Provider [...] age to complete this topic Care Teams Freight Solicitor Relationship Specialty Start Date End Date Unknown, PCP - General 10/26/20
== END 2024-12-29 15:00 | disposition home or self-care (01) ==
LOC: HO.ENCR 14:08
PROVIDERS: PCP Internal Medicine; Visit Provider Student in an Organized Health Care Education/Training Program
DX: E11.65 Type 2 diabetes mellitus with hyperglycemia (principal); F40.298 Other specified phobia; E78.2 Mixed hyperlipidemia
CPT/HCPCS: 99214

== ENCOUNTER → 2024-12-29 14:07 | Outpatient (BNVA) | payer OTHER, SELFPAY | PROVIDERS: PCP Internal Medicine; Visit Provider Student in an Organized Health Care Education/Training Program | DX: E11.65 Type 2 diabetes mellitus with hyperglycemia (principal) | CPT/HCPCS: 82947; 95250 ==

== ENCOUNTER 2025-01-12 11:41 | Outpatient (REF) | payer OTHER, SELFPAY ==
--- OUTSIDE RECORDS SUMMARY | 2025-01-12 14:12 | XMS_ITS | Clinical Summary ---
Author Organization [facility] Prior to 07/10/24 Address [address] [place] [address] Care Team Providers Care Wired Music Operator Name Role Phone Unknown, Primary Care Provider [...] age to complete this topic Care Teams Wired Music Operator Relationship Specialty Start Date End Date Unknown, PCP - General 10/26/20
[2025-01-12 14:48] LABS: Anion Gap 11 (12-20); Blood Urea Nitrogen 16 mg/dL (9-16); Calcium 9.3 mg/dL (8.4-10.2); Carbon Dioxide 29 mmol/L (22-29); Chloride 105 mmol/L (96-108); Estimated Glomerular Filt Rate > 60; Potassium 4.2 mmol/L (3.3-5.1); Sodium 141 mmol/L (135-145)
== END 2025-01-12 11:42 | disposition home or self-care (01) ==
LOC: HO.HMGCLDS 11:41
PROVIDERS: Visit Provider Student in an Organized Health Care Education/Training Program
DX: E11.65 Type 2 diabetes mellitus with hyperglycemia (principal)
CPT/HCPCS: 36415; 80048; 83036